=== PATIENT | female | born 1940 | race Caucasian/White ===

== ENCOUNTER → 2017-04-18 | Outpatient (CLI) | payer BC ==
[~2017-04-18] MED LIST: HYDC25 PO
== END | disposition home or self-care (01) ==
LOC: C.PATHSPEC 17:30
PROVIDERS: ATTEND Plastic Surgery
DX: L57.0 Actinic keratosis (principal); L57.8 Other skin changes due to chronic exposure to nonionizing radiation

== ENCOUNTER → 2017-04-23 | Outpatient (CLI) | payer BC ==
--- NOTE | 2017-04-23 10:53 | DIAGNOSTIC IMAGING REPORT ---
(CHEST) THORAX WITHOUT HISTORY:76 [id number] Pulmonary nodule follow-up study. COMPARISON: 07/19/[address] and 07/12/2015. TECHNIQUE: Multiple axial CT images of the chest were obtained without IV contrast. FINDINGS: No dominant thyroid nodule identified. Mildly prominent precarinal lymph node, 1.3 x 0.9 cm with central fatty hilum appears unchanged from comparison and is likely physiologic. Heart is normal in size without pericardial effusion. Prominent calcifications of the mitral annulus are noted. Three-vessel distribution of coronary arterial calcifications are present. A sending thoracic aorta is upper limits of normal at 4.0 x 3.9 cm. Extensive effort plaquing of the thoracic aorta is noted. The lungs are hyperinflated with upper lobe predominant centrilobular and paraseptal emphysema. 6 x 5 mm noncalcified pulmonary nodule of the lateral basal segment right lower lobe is redemonstrated. There is a subpleural reticulation in the lung bases are unchanged compatible with areas of fibrosis. Mucous secretions are seen within the airways. There are a few groundglass nodules in the right lower lobe measuring up to 4 mm as seen on image 32 of the axial series. There are some peripherally oriented tree-in-bud nodular opacities of the right upper lobe which appear to be unchanged. Upper abdominal structures are within normal limits. The soft tissues are within normal limits. The bones are mildly demineralized. Multilevel degenerative changes of the spine are noted. IMPRESSION: 1. 6 x 5 mm noncalcified solid pulmonary nodule of the lateral basal segment right lower lobe is stable dating back to 07/12/2015. Please refer to the guidelines below for follow-up recommendations. 2. A few scattered subsolid groundglass nodules of the right lower lobe are noted in conjunction with scattered areas of tree-in-bud nodularity of the right lower lobe suggesting infectious bronchiolitis. 3. Emphysema with mild bibasilar subpleural reticulation/fibrosis. Please refer to below summary of Fleischner criteria recommendations for follow-up of incidental CT nodules (Miguel Angel Lew, Guidelines for management of small pulmonary nodules detected on CT scans: A statement from the Fleischner Society, Radiology 237: [phone].) SOLID NODULES Solitary nodule size: <6 mm * Low risk patients: no follow-up needed * high risk patients: optional CT at 12 months Solitary nodule size: 6-8 mm * Low risk patients: follow-up at 6-12 months, then consider further follow-up at 18-24 months * high risk patients: initial follow-up CT at 6-12 months and then at 18-24 months if no change Solitary nodule size: >8 mm * either low or high risk patients - consider follow-up CT at 3 months, and/or CT-PET, and/or biopsy Multiple nodules size: <6 mm * Low risk patients: no routine follow-up * high risk patients: optional CT at 12 months Multiple nodules size: 6-8 mm * Low risk patients: follow-up at 3-6 months, then consider further follow-up at 18-24 months * high risk patients: follow-up at 3-6 months, then at 18-24 months if no change Multiple nodules size: >8 mm * Low risk patients: follow-up at 3-6 months, then consider further follow-up at 18-24 months * high risk patients: follow-up at 3-6 months, then at 18-24 months if no change Note: newly detected indeterminate nodule in persons 35 years of age or older. * Low risk patients: minimal or absent history of smoking and/or other known risk factors * high risk patients: history of smoking or of other known risk factors (e.g. first degree relative with lung cancer, or exposure to asbestos, radon, uranium) * if a nodule up to 8 mm is partly solid or is ground glass further follow-up is required after 24 months to exclude possible slow growing adenocarcinoma (ANDRA) SUBSOLID NODULES Solitary pure ground-glass nodule * nodule size <6 mm - no CT follow-up required * nodule size >=6 mm - follow-up CT at 6-12 months, then every 2 years until 5 years Solitary part-solid nodule * nodule size <6 mm - no CT follow-up required * nodule size >=6 mm - follow-up CT at 3-6 months. If unchanged, and solid component remains <6 mm, then annual follow-up for 5 years Multiple subsolid nodules * nodule size <6 mm - follow-up CT at 3-6 months, consider further follow-up at 2 and 4 years if stable * nodule size >=6 mm - follow-up CT at 3-6 months, subsequent management based on the most suspicious nodule(s) The above report was generated using voice recognition software. It may contain grammatical, syntax or spelling errors. Electronically signed by: Alvaro Luke 04/23/2017 10:52 AM Dictated Date/Time: 04/23/2017 10:44 AM
== END | disposition home or self-care (01) ==
LOC: C.CTS 09:41
PROVIDERS: ATTEND Internal Medicine Critical Care Medicine
DX: R91.8 Other nonspecific abnormal finding of lung field (principal); R91.1 Solitary pulmonary nodule

== ENCOUNTER 2017-08-22 21:51 | Emergency (ER) | payer BC ==
[~2017-08-22] VITALS: Ht 162.6 cm; Wt 49.4 kg
[2017-08-22 21:54] VITALS: TEMP 36.8; Ht 162.6 cm; Wt 49.4 kg
[2017-08-22] MEDS ORDERED: PROP80TA2 PO (22:56)
[2017-08-22] MEDS ORDERED: SYMBICORT INH (22:56)
[2017-08-22] MEDS ORDERED: LORA-741 PO (22:56)
[2017-08-22] MEDS ORDERED: LISI-461 PO (22:56)
[2017-08-22] MEDS ORDERED: ALEN70TA4 PO (22:56)
[2017-08-22] MEDS ORDERED: DONE1TAB11 PO (22:56)
[2017-08-22] MEDS ORDERED: CLOP1TAB15 PO (22:56)
[2017-08-22] MEDS ORDERED: LEVO88TA PO (22:56)
[2017-08-22] MEDS ORDERED: ATOR10TA82 PO (22:56)
[2017-08-22] MEDS ORDERED: TMPOPS15 OPB (22:58)
[2017-08-22] MEDS ORDERED: ASPI81TA28 PO (23:00)
--- NOTE | 2017-08-23 00:14 | EMERGENCY ROOM VISIT NOTE ---
History Report prepared by Maryjo: Alejandra Franco Under the Supervision of: Dr. Isabella Schulte D.O. First contact with patient: 22:15 Chief Complaint: FALL Stated Complaint: FELL, FACIAL BRUISING, BACK PAIN History of Present Illness The patient is a 76 year old female who presents to the Emergency Room with complaints of a fall at 1100 today. The patient was out in the driveway. It was raining and she slipped and fell. She fell forwards and was able to catch herself with her hands and knees. She hit her face in the fall. She denies any LOC. She remembers everything. She has been having intermittent sharp neck pain. She has had lower back pain recently which has worsened after the fall. The pain goes down her right leg which is normal for her. She vomited in the late afternoon today. She thinks it was because she was hungry. She is currently nauseous which she attributes to not having eating much today. She denies any vision changes, numbness, tingling, rib pain, abdominal pain, urinary symptoms, change in bowel movement, or SOB. She is on baby aspirin. Source of History: patient, family Onset: 1100 Position: other (global) Quality: other (fall) Timing: other (episodic) Associated Symptoms: + neck pain, + nausea, + vomiting, + back pain, No LOC , No abdominal pain, No urinary symptoms, No numbness Review of Systems See HPI for pertinent positives & negatives. A total of 10 systems reviewed and were otherwise negative. Family History No pertinent family history stated. Social History Smoking Status: Former Smoker Marital Status: Occupation Status: retired Current/Historical Medications Scheduled Alendronate Sodium (Fosamax), 35 MG PO WK Aspirin (Aspirin Ec), 81 MG PO DAILY Atorvastatin (Lipitor), 10 MG PO DAILY Clopidogrel (Plavix), 75 MG PO DAILY Donepezil Hydrochloride (Donepezil Hcl), 1 TAB PO DAILY Levothyroxine Sodium (Synthroid), 88 MCG PO DAILY Lisinopril (Zestril), 10 MG PO DAILY Propranolol (Inderal), 40 MG PO BID Timolol Maleate (Timolol 0.5% Oph Soln 15 Ml), 1 DROP OPB BID [Symbicort], 2 PUFFS INH QAM Scheduled PRN Lorazepam (Ativan), 0.5 MG PO DAILY PRN for Anxiety Allergies Coded Allergies: Sulfa Drugs (Verified Adverse Reaction, Mild, STOMACH UPSET, 05/06/13) Physical Exam Vital Signs Date Time Temp Pulse Resp B/P (MAP) Pulse Ox O2 Delivery O2 Flow Rate FiO2 08/23/17 00:45 85 16 138/74 96 08/22/17 21:54 36.8 89 16 145/71 96 Room Air Physical Exam GENERAL: alert, well appearing, well nourished, no distress, non-toxic HEAD: Contusion to the chin and left jaw, contusion along the left supraorbital region. EYE EXAM: normal conjunctiva, PERRL and EOM's grossly intact OROPHARYNX: no exudate, no erythema, lips, buccal mucosa, and tongue normal and mucous membranes are moist NECK: supple, no nuchal rigidity, no adenopathy, non-tender CHEST: No crepitus, no step off. LUNGS: Clear to auscultation. Normal chest wall mechanics HEART: no murmurs, S1 normal and S2 normal ABDOMEN: abdomen soft, non-tender, normo-active bowel sounds, no masses, no rebound or guarding. BACK: Back is symmetrical on inspection and there is no deformity, no CVA tenderness. Mild right low back pain reproducible on palpation. PELVIS: stable SKIN: no rashes and no bruising UPPER EXTREMITIES: upper extremities are grossly normal. LOWER EXTREMITIES: Superficial abrasions to the left knee. NEURO EXAM: Normal sensorium, cranial nerves II-XII grossly intact, normal speech, no gross weakness of arms, no gross weakness of legs. Medical Decision & Procedures ER Provider Diagnostic Interpretation: Xray results have been interpreted by me. Pelvis X-ray: No fracture or dislocation. Chest X-ray: No cardiomegaly, no effusions, no focal consolidation, no wide mediastinum, no pneumothorax, no rib fracture, no pulmonary edema. Radiology results have been interpreted by the [facility] radiologist and reviewed by me. CT Head: No intracranial hemorrhage or skull fracture. Involutional changes small vessel disease. Cataract surgery. Partly calcified scalp nodule. CT Facial: No acute fracture. Soft tissue swelling. Radiologist: Faviola Quinonez M.D. CT C-spine: No fracture or malalignment. CT L-spine: L1 is incompletely imaged. Otherwise no fracture identified. Degenerative changes. Levoscoliosis. Atherosclerotic changes. Stent grafts in the iliac arteries. Radiologist: Faviola Quinonez M.D. ECG Indication: other (fall) Rate (beats per minute): 62 Rhythm: sinus rhythm Findings: no acute ischemic change, no ectopy, other (normal axis, normal intervals) ED Course 2231: The patient was evaluated in room A10. A complete history and physical exam was performed. 0047: Patient updated on all results. Discussed symptoms to watch and return for, close follow-up with family doctor, use of regular medications, she and family verbalized understanding were agreeable with plan. I feel patient's isolated episode of vomiting unrelated to head injury today she has had a slight episodes in the past. They feel more likely related to food, being hungry, and/or the recent dental procedure she has undergone with subsequent pain. No new medications, doubt bacteremia/sepsis, EKG reassuring, patient with no other complaints of plain here. Neuro exam otherwise nonfocal and reassuring. Medical Decision Differential diagnoses include major intracranial, cervical, spinal, thoracic, abdominal, pelvic and neurologic injury. Fracture, contusion, sprain, strain, laceration, abrasions included as well. Patient well-appearing here despite contusions. Patient moving all extremities , and mentating normally. Imaging on the patient reassuring. Doubt a slight episode of vomiting related to head trauma or occult trauma to the abdomen and pelvis. EKG unremarkable. Doubt related to ACS. Doubt bacteremia/sepsis. Patient tolerated by mouth here, has had no recurrent vomiting. Discussed with patient and family symptoms to watch and return for, risk of additional occult traumatic injury, use of medications, hydration, and avoidance of any additional falls, they verbalized understanding were agreeable to plan. Head Trauma GCS Score: 15 Medication Reconcilliation Current Medication List: was personally reviewed by me Blood Pressure Screening Patient's blood pressure: Elevated blood pressure Blood pressure disposition: Elevated BP felt to be situational Impression Primary Impression: Fall Additional Impressions: Contusion of multiple sites Abrasion Scribe Attestation The scribe's documentation has been prepared under my direction and personally reviewed by me in its entirety. I confirm that the note above accurately reflects all work, treatment, procedures, and medical decision making performed by me. Departure Information Dispostion Home / Self-Care Referrals Abdelrahman Holder M.D. (PCP) Patient Instructions My [facility] Additional Instructions Please continue regular medications as prescribed. Please be cautious to avoid any additional or new falls or injuries. If you have any worsening headaches, vision changes, dizziness, have recurrent vomiting or develop abdominal pain, are unable to walk, develop numbness or tingling, have worsening back pain, notice a change in your urine or stools, or you have any other new concerns, please return the emergency room. Problem Qualifiers Primary Impression: Fall Encounter type: initial encounter Qualified Codes: W19.XXXA - Unspecified fall, initial encounter
[2017-08-23 00:45] VITALS: BP 138/74; PULSE 85; O2SAT 96
--- NOTE | 2017-08-23 06:27 | DIAGNOSTIC IMAGING REPORT ---
FACIAL BONES-MXILLOFAC WITHOUT CT DOSE: HISTORY: Trauma trauma, pain TECHNIQUE: Multiaxial CT images of the maxillofacial region were performed and reformatted in the coronal plane without the use of contrast. A dose lowering technique was utilized adhering to the principles of ALARA. COMPARISON: None. FINDINGS: The visualized cervical spine, skull base, pterygoid plates, nasal bones, lamina papyracea, orbital floors, mandible, and zygomatic arches are intact. No fractures. The orbits are unremarkable. IMPRESSION: No fractures within the maxillofacial region. The above report was generated using voice recognition software. It may contain grammatical, syntax or spelling errors. Electronically signed by: Chao Quiroz M.D. 08/23/2017 6:26 AM Dictated Date/Time: 08/23/2017 6:25 AM
--- NOTE | 2017-08-23 06:29 | DIAGNOSTIC IMAGING REPORT ---
LUMBAR SPINE WITHOUT CT DOSE: HISTORY: Trauma trauma, pain TECHNIQUE: Multiaxial CT images of the lumbar spine were performed and reformatted in the sagittal and coronal plane without the use of contrast. A dose lowering technique was utilized adhering to the principles of ALARA. COMPARISON: None. FINDINGS: No fractures. No subluxation. Paraspinal soft tissues are unremarkable. Considerable degenerative disc changes throughout. Degenerative change of vertebral endplates. Degenerative change posterior elements. IMPRESSION: Considerable degenerative change. No acute process. The above report was generated using voice recognition software. It may contain grammatical, syntax or spelling errors. Electronically signed by: Chao Quiroz M.D. 08/23/2017 6:28 AM Dictated Date/Time: 08/23/2017 6:27 AM
--- NOTE | 2017-08-23 06:34 | DIAGNOSTIC IMAGING REPORT ---
PELVIS 1 OR 2 VIEW ROUTINE CLINICAL HISTORY: trauma pain COMPARISON: None. DISCUSSION: The bones and joint spaces appear intact. There is no evidence of fracture, dislocation or bony disease. There is no evidence for soft tissue swelling. IMPRESSION: Negative study. The above report was generated using voice recognition software. It may contain grammatical, syntax or spelling errors. Electronically signed by: Chao Quiroz M.D. 08/23/2017 6:33 AM Dictated Date/Time: 08/23/2017 6:33 AM
--- NOTE | 2017-08-23 07:04 | DIAGNOSTIC IMAGING REPORT ---
CT SCAN OF THE BRAIN WITHOUT IV CONTRAST CLINICAL HISTORY: Trauma. COMPARISON STUDY: CT of the brain dated 01/13/2011. TECHNIQUE: Unenhanced axial CT scan of the brain is performed from the vertex to the skull base. FINDINGS: Brain parenchyma: There are age-related involutional changes noting moderate subcortical and periventricular microangiopathic change. There is no hemorrhage, mass effect, or evidence of acute territorial ischemia by CT criteria. Frankel-white matter is preserved. No extra-axial fluid collection is seen. Ventricles, sulci, cisterns: Prominent secondary to involutional change. Intracranial vasculature: There is atherosclerotic calcification of the cavernous carotid and vertebral arteries. Calvarium: The skeletal structures are osteopenic. There is no depressed calvarial fracture. Soft tissues: A calcified sebaceous cyst is noted in the left posterior parietal scalp. There is minimal left periorbital scalp contusion. Sinuses and mastoids: The visualized paranasal sinuses are clear. There is a right mastoid effusion. The left mastoid air cells are well pneumatized. Orbits: The bony orbits are grossly intact. IMPRESSION: There is no hemorrhage, mass effect, or evidence of acute territorial ischemia by CT criteria. Electronically signed by: Jalen Romeo M.D. 08/23/2017 7:03 AM Dictated Date/Time: 08/23/2017 7:01 AM
--- NOTE | 2017-08-23 07:10 | DIAGNOSTIC IMAGING REPORT ---
CT SCAN OF THE CERVICAL SPINE CLINICAL HISTORY: Trauma. COMPARISON STUDY: No priors. TECHNIQUE: CT scan of the cervical spine is performed from the skull base to the upper thoracic spine. Images are reviewed in the axial, sagittal, and coronal planes. IV contrast was not administered for this examination. A dose lowering technique was utilized adhering to the principles of ALARA. CT DOSE: 1484.75 mGy.cm FINDINGS: Skeletal structures: The skeletal structures are osteopenic. There is no evidence of fracture or subluxation involving the cervical spine. Vertebral body height and alignment are maintained. The odontoid process and lateral masses are intact. The atlantoaxial articulation is preserved noting productive degenerative change. The spinous processes appear intact. Anterior osteophytes are seen in the lower cervical region. There is moderate to advanced multilevel cervical spondylosis. Uncovertebral and facet arthropathy contribute to neural foraminal stenosis at most levels. Intervertebral discs: There is moderate to advanced disc space narrowing seen at C6-C7. Only mild disc space narrowing is seen throughout the remainder of the cervical spine. Central canal: Posterior disc osteophyte complexes at C3-C4 at C6-C7 likely contribute to mild acquired compromise of the central canal. Soft tissues: The prevertebral and paraspinous soft tissues are within normal limits. There is atherosclerotic calcification of the carotid bulbs. Calvarium: The visualized calvarium at the skull base appears intact. Brain parenchyma: Partially visualized brain parenchyma the skull base is within normal limits noting age-related involutional change. Sinuses and mastoids: The visualized paranasal sinuses are clear. There is a small right mastoid effusion. The left mastoid air cells are well pneumatized. Lung apices: Clear as visualized. IMPRESSION: 1. There is no evidence of fracture or subluxation involving the cervical spine. 2. Osteopenia and spondylotic change as above. Electronically signed by: Jalen Romeo M.D. 08/23/2017 7:09 AM Dictated Date/Time: 08/23/2017 7:06 AM
--- NOTE | 2017-08-23 07:16 | DIAGNOSTIC IMAGING REPORT ---
SINGLE VIEW CHEST CLINICAL HISTORY: Trauma. FINDINGS: An AP, portable, upright chest radiograph is compared to study dated 01/13/2011 and correlated with chest CT dated 04/23/2017. The examination is degraded by portable technique and apical lordotic positioning. The heart is top normal for projection and there is atherosclerotic calcification of the thoracic aorta. Emphysema and chronic interstitial thickening are similar to previous. There is bibasilar atelectasis. No airspace consolidation, large pleural effusion, or pneumothorax is seen. The skeletal structures are osteopenic. The bony thorax is grossly intact. Degenerative change and mild scoliosis are noted in the thoracic spine. IMPRESSION: Emphysematous change with no acute cardiopulmonary abnormality. Electronically signed by: Jalen Romeo M.D. 08/23/2017 7:15 AM Dictated Date/Time: 08/23/2017 7:14 AM
== END 2017-08-23 00:46 | disposition home or self-care (01) ==
LOC: C.EDB 21:52 → C.EDA 08-23 00:46
DX: S00.83XA Contusion of other part of head, initial encounter (principal); S00.12XA Contusion of left eyelid and periocular area, initial encounter; S80.212A Abrasion, left knee, initial encounter; W01.198A Fall on same level from slipping, tripping and stumbling with subsequent striking against other object, initial encounter; R40.2412 Glasgow coma scale score 13-15, at arrival to emergency department; R03.0 Elevated blood-pressure reading, without diagnosis of hypertension; Z79.82 Long term (current) use of aspirin; Z87.891 Personal history of nicotine dependence

== ENCOUNTER 2017-09-06 09:53 | Emergency (ER) | payer BC ==
[~2017-09-06] VITALS: Ht 162.6 cm; Wt 49.0 kg
[~2017-09-06 09:53] MED LIST changes: +ALEN70TA4 PO; +ASPI81TA28 PO; +ATOR10TA82 PO; +CLOP1TAB15 PO; +DONE1TAB11 PO; -HYDC25 PO; +LEVO88TA PO; +LISI-461 PO; +LORA-741 PO; +PROP80TA2 PO; +SYMBICORT INH; +TMPOPS15 OPB
[2017-09-06 10:00] VITALS: TEMP 36.8; Ht 162.6 cm; Wt 49.0 kg
[2017-09-06] MEDS ORDERED: ONDANSETRON INJ 2 MG/ML 2 ML VIAL IV STA (10:35)
[2017-09-06] MEDS ORDERED: GI COCKTAIL PO STA (10:35)
[2017-09-06] MEDS ORDERED: FAMOTIDINE 20 MG TAB PO ONE (10:45)
--- NOTE | 2017-09-06 10:46 | EMERGENCY ROOM VISIT NOTE ---
History Report prepared by Maryjo: Josue Mccord Under the Supervision of: Dr. Eduin Burroughs M.D. First contact with patient: 10:19 Chief Complaint: DIARRHEA Stated Complaint: DIARREHA History of Present Illness The patient is a 76 year old white female who presents to the ED with a cc of intermittent nausea. Has been sick for "a while". Positive diarrhea. Diarrhea has been intermittent for "a while" as well. Patient quit smoking a few days ago. Was previously smoking a half pack a day. Drinks well water, but notes that it is treated. Denies recent travel, antibiotic use, or known sick contacts. Had Thanksgiving dinner last night, but no one else has had similar symptoms. Negative urinary symptoms. EMR reviewed. Patient was seen in the ED two weeks ago for a fall. Had negative CT head, neck and face. Source of History: patient Onset: "a while" ago Quality: other (nausea) Timing: intermittent Associated Symptoms: + diarrhea, No urinary symptoms Review of Systems See HPI for pertinent positives and negatives. A total of ten systems were reviewed and were otherwise negative. Past Medical & Surgical Medical Problems: (1) No Known Active Medical Problems Family History No pertinent family history stated. Social History Smoking Status: Former Smoker Marital Status: Occupation Status: retired Current/Historical Medications Scheduled Alendronate Sodium (Alendronate Sodium), 35 MG PO WK Atorvastatin (Atorvastatin Calcium), 10 MG PO DAILY Clopidogrel (Plavix), 75 MG PO DAILY Donepezil HCl (Aricept), 5 MG PO DAILY Levothyroxine Sodium (Levothyroxine Sodium), 88 MCG PO DAILY Lisinopril (Zestril), 10 MG PO DAILY Propranolol Hcl (Propranolol Hcl), 40 MG PO BID Scheduled PRN Albuterol Hfa (Ventolin Hfa), 2 PUFFS INH Q4 PRN for SOB/Wheezing Ondansetron Hcl (Zofran), 4 MG PO TID PRN for Nausea Allergies Coded Allergies: Sulfa Drugs (Verified Adverse Reaction, Mild, STOMACH UPSET, 09/06/17) Physical Exam Vital Signs Date Time Temp Pulse Resp B/P (MAP) Pulse Ox O2 Delivery O2 Flow Rate FiO2 09/06/17 14:30 63 21 116/52 94 09/06/17 13:00 64 18 125/58 92 Room Air 09/06/17 12:30 61 22 103/48 95 Room Air 09/06/17 12:00 62 26 120/53 93 Room Air 09/06/17 11:11 63 28 136/50 94 Room Air 09/06/17 10:46 64 09/06/17 10:00 36.8 73 16 117/52 98 Room Air Physical Exam GENERAL: Awake, alert, well-appearing, NAD HENT: Normocephalic, ecchymosis to the chin and left periorbital area. No proptosis. EOMI. EYES: Normal conjunctiva. Sclera non-icteric. NECK: Supple. No nuchal rigidity. FROM. RESPIRATORY: Diffuse wheezing throughout all lung samson. CARDIAC: RRR, no MRG ABDOMEN: Soft, NTND, BS+ MSK: No chest wall TTP, no LE edema NEURO: GCS 15, CN 2-12 intact, moves all 4s on command SKIN: No rash or jaundice noted. Medical Decision & Procedures ER Provider Diagnostic Interpretation: X-ray: Per my interpretation, radiologist review. ABDOMEN 2VIEW W/PA CHEST RTN FINDINGS: Pulmonary vascular congestion of the chest. Slight blunting lateral costophrenic angles. This is slightly progressive compared to the prior study of 08/22/2017. Nonobstructive bowel pattern. Stents in position within the iliac arteries bilaterally. No evidence for an obstructive bowel pattern. Degenerative change of the spine as well as hips bilaterally. IMPRESSION: 1. Pulmonary vascular congestion the chest. 2. No acute process the abdomen. The above report was generated using voice recognition software. It may contain grammatical, syntax or spelling errors. Electronically signed by: Chao Quiroz M.D. 09/06/2017 11:44 AM Laboratory Results 09/06/17 10:45 Red Blood Count 4.54, Mean Corpuscular Volume 84.8, Mean Corpuscular Hemoglobin 29.1, Mean Corpuscular Hemoglobin Concent 34.3, Mean Platelet Volume 9.5, Neutrophils (%) (Auto) 63.5, Lymphocytes (%) (Auto) 12.6, Monocytes (%) (Auto) 6.7, Eosinophils (%) (Auto) 15.1, Basophils (%) (Auto) 1.1, Neutrophils # (Auto ) 3.99, Lymphocytes # (Auto) 0.79, Monocytes # (Auto) 0.42, Eosinophils # (Auto ) 0.95, Basophils # (Auto) 0.07 09/06/17 10:45 Test 09/06/17 10:45 White Blood Count 6.28 K/uL (4.8-10.8) Red Blood Count 4.54 M/uL (4.2-5.4) Hemoglobin 13.2 g/dL (12.0-16.0) Hematocrit 38.5 % (37-47) Mean Corpuscular Volume 84.8 fL (80-100) Mean Corpuscular Hemoglobin 29.1 pg (25-34) Mean Corpuscular Hemoglobin Concent 34.3 g/dl (32-36) Platelet Count 140 K/uL (130-400) Mean Platelet Volume 9.5 fL (7.4-10.4) Neutrophils (%) (Auto) 63.5 % Lymphocytes (%) (Auto) 12.6 % Monocytes (%) (Auto) 6.7 % Eosinophils (%) (Auto) 15.1 % Basophils (%) (Auto) 1.1 % Neutrophils # (Auto) 3.99 K/uL (1.4-6.5) Lymphocytes # (Auto) 0.79 K/uL (1.2-3.4) Monocytes # (Auto) 0.42 K/uL (0.11-0.59) Eosinophils # (Auto) 0.95 K/uL (0-0.5) Basophils # (Auto) 0.07 K/uL (0-0.2) RDW Standard Deviation 42.2 fL (36.4-46.3) RDW Coefficient of Variation 13.8 % (11.5-14.5) Immature Granulocyte % (Auto) 1.0 % Immature Granulocyte # (Auto) 0.06 K/uL (0.00-0.02) Red Blood Cell Morphology Unremarkable Anion Gap 6.0 mmol/L (3-11) Est Creatinine Clear Calc Drug Dose 37.0 ml/min Estimated GFR () 63.4 Estimated GFR (Non- 54.7 BUN/Creatinine Ratio 12.1 (10-20) Calcium Level 8.0 mg/dl (8.5-10.1) Total Bilirubin 0.6 mg/dl (0.2-1) Direct Bilirubin 0.2 mg/dl (0-0.2) Aspartate Amino Transf (AST/SGOT) 17 U/L (15-37) Alanine Aminotransferase (ALT/SGPT) 13 U/L (12-78) Alkaline Phosphatase 267 U/L (45-117) Troponin I < 0.015 ng/ml (0-0.045) Total Protein 7.0 gm/dl (6.4-8.2) Albumin 2.6 gm/dl (3.4-5.0) Lipase 95 U/L (73-393) Laboratory results reviewed by me Medications Administered Medications (Trade) Dose Ordered Sig/Kayy Route Start Time Stop Time Status Last Admin Dose Admin Ondansetron HCl (Zofran Inj) 4 mg NOW STAT IV 09/06/17 10:35 09/06/17 10:37 DC 09/06/17 11:01 4 MG Famotidine (Pepcid Tab) 20 mg NOW ONCE PO 09/06/17 10:45 09/06/17 10:46 DC 09/06/17 11:00 20 MG Al Hydroxide/Mg Hydroxide (Maalox Susp) 30 ml STK-MED ONCE .ROUTE 09/06/17 10:55 09/06/17 10:56 DC 09/06/17 11:02 30 ML Lidocaine HCl (Viscous Lidocaine 2% Soln) 20 ml STK-MED ONCE .ROUTE 09/06/17 10:56 09/06/17 10:57 DC 09/06/17 11:03 20 ML ECG Indication: nausea Rate (beats per minute): 63 Rhythm: normal sinus Findings: no ectopy, other (Normal intervals. Normal axis. No STS changes or TWI. ) ED Course 1022: The patient was evaluated in room A12B. A complete history and physical exam was performed. 1335: I reevaluated the patient. Discussed results and discharge instructions: she verbalized understanding and agreement. The patient is ready for discharge. Medical Decision The patient is a 76 year old white female who presents to the ED with a cc of intermittent nausea. Differential diagnosis includes etiologies such as appendicitis, diverticulitis, PUD, biliary pathology, UTI, pancreatitis, obstruction, mesenteric ischemia, aortic pathology, infections, inflammatory bowel disease, renal colic, as well as others were entertained. Patient was seen and evaluated the bedside. Patient did complain of some mild nausea beginning this morning. Patient has felt the urge to vomit but has not had any episodes of emesis. Patient has had some looser stools. Patient did have thanks giving dinner last evening and now BL Rodger sick. Patient denies any stream water, sick contacts, or antibiotic use. Patient and do have a well but it is treated. Patient on exam is very well-appearing. Patient did last use tobacco several days ago but has been a chronic smoker for many years for half pack a day. Patient does have wheezing on exam was not tachypnea nor hypoxic nor labored. Patient's abdomen is very soft. Patient did have blood work, EKG, troponin, and plain films completed along with symptomatic treatment. Patient was feeling improved. Patient had a nonischemic EKG. Patient troponin negative. Patient was feeling much improved. I do not believe that the patient is having atypical chest pain. Also do not believe the patient has a surgical abdomen. Patient does not require any more advanced imaging this time. Alk phos mildly elevated but WBC WNL and t bilis and LFTs WNL do not believe GB type pain. Patient was able tolerate by mouth was told to follow-up with her PCP or return given some warning signs. Patient was given strict follow -up, discharge, and return precautions. All questions were answered. Patient was deemed suitable for outpatient follow-up at this time. Patient agreed with the plan of care and was safely discharged home. Medication Reconcilliation Current Medication List: was personally reviewed by me Blood Pressure Screening Patient's blood pressure: Normal blood pressure Blood pressure disposition: Did not require urgent referral Impression Primary Impression: Nausea Additional Impressions: Gastroenteritis Encounter for smoking cessation counseling Scribe Attestation The scribe's documentation has been prepared under my direction and personally reviewed by me in its entirety. I confirm that the note above accurately reflects all work, treatment, procedures, and medical decision making performed by me. Departure Information Dispostion Home / Self-Care Referrals Abdelrahman Holder M.D. (PCP) Patient Instructions ED Diet Shirley, ED Nausea Vomiting, ED Smoking Cessation, [facility] , Nausea Vomit Control Additional Instructions Please return to the emergency department if you have worsening or recurrent symptoms not amenable to at-home treatment. Please call for a follow-up appointment with her primary care physician. Please take your medications as prescribed. If you have other concerns and/or complaints please feel free to also call your primary care physician's office or return the ED for further evaluation, management, and treatment. Take your medications as prescribed. You have been examined and treated today on an emergency basis only. This is not a substitute for, or an effort to provide, complete comprehensive medical care. It is impossible to recognize and treat all injuries or illnesses in a single emergency department visit. It is therefore important that you follow up closely with [facility], your PCP, and/or your specialist(s). Call as soon as possible for an appointment. Thank you for your time and consideration. I look forward to speaking with you again soon. Please don't hesitate to call us if you have any questions. Problem Qualifiers
[2017-09-06] MEDS ORDERED: ALUMINUM/MAGNESIUM SUSP 30 ML UDC ONE (10:55)
[2017-09-06] MEDS ORDERED: LIDOCAINE HCL 2% VISC SOLN 20 ML UDC ONE (10:56)
[2017-09-06 11:31] LABS: ALT/SGPT 13 U/L (12-78); AST/SGOT 17 U/L (15-37); BLOOD UREA NITROGEN 12 mg/dl (7-18); BUN/CREATININE RATIO 12.1 (10-20); CARBON DIOXIDE 25 mmol/L (21-32); CHLORIDE 102 mmol/L (98-107); GLUCOSE 83 mg/dl (70-99); POTASSIUM 4.2 mmol/L (3.5-5.1); SODIUM 133 mmol/L (136-145)
[2017-09-06 11:37] LABS: ALKALINE PHOSPHATASE 267 U/L (45-117)
[2017-09-06 11:41] LABS: HEMATOCRIT 38.5 % (37-47); MEAN CELL VOLUME 84.8 fL (80-100); MEAN CORPUSCULAR HEMOGLOBIN 29.1 pg (25-34); MEAN CORPUSCULAR HGB CONC 34.3 g/dl (32-36); MEAN PLATELET VOLUME 9.5 fL (7.4-10.4); PLATELET COUNT 140 K/uL (130-400); RED BLOOD COUNT 4.54 M/uL (4.2-5.4); WHITE BLOOD COUNT 6.28 K/uL (4.8-10.8)
--- NOTE | 2017-09-06 11:45 | DIAGNOSTIC IMAGING REPORT ---
ABDOMEN 2VIEW W/PA CHEST RTN CLINICAL HISTORY: ABDOMINAL PAIN/GI pain COMPARISON STUDY: 08/22/2017 FINDINGS: Pulmonary vascular congestion of the chest. Slight blunting lateral costophrenic angles. This is slightly progressive compared to the prior study of 08/22/2017. Nonobstructive bowel pattern. Stents in position within the iliac arteries bilaterally. No evidence for an obstructive bowel pattern. Degenerative change of the spine as well as hips bilaterally. IMPRESSION: 1. Pulmonary vascular congestion the chest. 2. No acute process the abdomen. The above report was generated using voice recognition software. It may contain grammatical, syntax or spelling errors. Electronically signed by: Chao Quiroz M.D. 09/06/2017 11:44 AM Dictated Date/Time: 09/06/2017 11:43 AM
[2017-09-06] MEDS ORDERED: PROP40TA5 PO (11:55)
[2017-09-06] MEDS ORDERED: ONDA4TAB46 PO (11:55)
[2017-09-06] MEDS ORDERED: CLOP1TAB15 PO (11:55)
[2017-09-06] MEDS ORDERED: VNTHFA/IN INH (11:55)
[2017-09-06] MEDS ORDERED: DONE5TAB9 PO (11:55)
[2017-09-06] MEDS ORDERED: ALEN1TAB21 PO (11:55)
[2017-09-06] MEDS ORDERED: LPT10 PO (11:55)
[2017-09-06] MEDS ORDERED: LEVO88TA3 PO (11:55)
[2017-09-06] MEDS ORDERED: LISI-461 PO (11:55)
[2017-09-06 12:07] LABS: BASO % 1.1 %; BASO ABS # 0.07 K/uL (0-0.2); COMPLETE YES; EOS % 15.1 %; LYMPH % 12.6 %; LYMPH ABS # 0.79 K/uL (1.2-3.4); MONO % 6.7 %; NEUT % 63.5 %
[2017-09-06 14:30] VITALS: BP 116/52; PULSE 63; O2SAT 94
== END 2017-09-06 14:30 | disposition home or self-care (01) ==
LOC: C.EDB 09:55 → C.EDA 14:30
DX: R11.0 Nausea (principal); K52.9 Noninfective gastroenteritis and colitis, unspecified; Z71.6 Tobacco abuse counseling; Z79.02 Long term (current) use of antithrombotics/antiplatelets; Z79.899 Other long term (current) drug therapy

== ENCOUNTER 2021-09-05 14:34 | Inpatient (IN) ==
[2021-09-05 17:41] LABS: Basophils # (auto) 0.02 K/uL (0-0.2); Basophils % (auto) 0.2 %; Eosinophils # (auto) 0.11 K/uL (0-0.5); Eosinophils % (auto) 0.9 %; Hematocrit (blood only) 35.6 % (37-47); Hemoglobin 11.8 g/dL (12.0-16.0); Immature Granulocytes # (auto) 0.02 K/uL (0.00-0.02); Immature Granulocytes % (auto) 0.2 %; Lymphocytes # (auto) 3.04 K/uL (1.2-3.4); Lymphocytes % (auto) 25.4 %; Mean Corpuscular Hemoglobin 27.6 pg (25-34); Mean Corpuscular Hgb Conc 33.1 g/dL (32-36); Mean Corpuscular Volume 83.4 fL (80-100); Mean Platelet Volume 8.7 fL (7.4-10.4); Monocytes # (auto) 1.13 K/uL (0.11-0.59); Monocytes % (auto) 9.4 %; Neutrophils # (auto) 7.66 K/uL (1.4-6.5); Neutrophils % (auto) 63.9 %; Platelet Count 225 K/uL (130-400); RDW Coefficient of Variation 15.1 % (11.5-14.5); RDW Standard Deviation 46.3 fL (36.4-46.3); Red Blood Count 4.27 M/uL (4.2-5.4); White Blood Count 11.98 K/uL (4.8-10.8)
[2021-09-05 18:10] LABS: Albumin Level 2.9 gm/dl (3.4-5.0); BUN Creatinine Ratio 17.5 (10-20); Calcium 9.2 mg/dl (8.5-10.1); Creatinine Clr Calc Pharmacy 24.6 ml/min; Est GFR (African American) 49.9 ml/min; Est GFR (Non-African American) 43.1 ml/min; Potassium 4.7 mmol/L (3.5-5.1)
[2021-09-05 18:16] LABS: Albumin Globulin Ratio 0.6 (0.9-2); Bilirubin,Total 0.6 mg/dl (0.2-1); Globulin 4.9 gm/dl (2.5-4.0); Thyroid Stimulating Hormone 6.3 uIu/ml (0.300-4.500); Total Protein 7.8 gm/dl (6.4-8.2); Troponin I 0.307 ng/ml (0-0.045)
[2021-09-05 18:21] LABS: Magnesium 2.3 mg/dl (1.8-2.4)
[2021-09-05 18:32] LABS: T4 Free Thyroxine 1.21 ng/dl (0.8-1.6)
[2021-09-05] MEDS ORDERED: SODIUM CHLORIDE 0.9% 1000ML 1,000 ML IV ONE ×2 (18:34→20:17)
--- NOTE | 2021-09-05 18:38 | Emergency Department Note ---
History of Present Illness General Chief complaint: Fall Stated complaint: FELL OFF THE COUCH/LETHARGIC Time Seen by Provider: 09/05/21 18:22 History of Present Illness 80-year-old female presents to the ED with a chief complaint of some generalized weakness and a fall off of a couch overnight. The patient has 2 caregivers at home through the day but not overnight. The caregiver presents tonight with the patient. She fell asleep on the couch last evening possibly around 8 or 9 PM. She at some point fell off the couch onto the floor. She was found on the floor this morning around 7:45 AM. She does have a history of dementia. She has had decreased p.o. intake for the past 36 hours or so according to the caregiver. She has not been taking her meds well. The patient seems to be generally weak. Is slurring her words slightly. No additional complaints. The patient has no specific complaints. Denies any headaches, chest pains, shortness of breath or injury. Home Medications Medication Instructions Recorded Confirmed Type atorvastatin 10 mg tablet 10 mg PO HS 06/14/18 09/05/21 History clopidogrel 75 mg tablet 75 mg PO DAILY 06/14/18 09/05/21 History levothyroxine 75 mcg tablet 75 mcg PO DAILYBB 06/14/18 09/05/21 History lisinopril 5 mg tablet 5 mg PO DAILY 06/14/18 09/05/21 History albuterol sulfate 90 mcg/actuation 2 puff INHALATION Q4H PRN #8 gm 05/25/19 09/05/21 Rx aerosol inhaler (Ventolin HFA) travoprost 0.004 % eye drops 1 drp OPB HS ml 05/25/19 09/05/21 History budesonide-formoterol HFA 80 2 puff INH BID #10.2 gm 12/05/20 09/05/21 Rx mcg-4.5 mcg/actuation aerosol inhaler (Symbicort) roflumilast 500 mcg tablet 500 mcg PO DAILY #30 tab 04/11/21 09/05/21 Rx fluticasone propionate 50 2 spray INTRANASAL DAILY 09/05/21 09/05/21 History mcg/actuation nasal spray,suspension ipratropium 0.5 mg-albuterol 3 mg 3 ml INHALATION QID PRN 09/05/21 09/05/21 History (2.5 mg base)/3 mL nebulization soln mirtazapine 30 mg tablet 30 mg PO HS 09/05/21 09/05/21 History ondansetron HCl 4 mg tablet 4 mg PO Q8H PRN 09/05/21 09/05/21 History (Zofran) propranolol 60 mg capsule,24 60 mg PO DAILY 09/05/21 09/05/21 History hr,extended release risperidone 0.25 mg tablet 0.25 mg PO HS 09/05/21 09/05/21 History Allergies Allergy/AdvReac Type Severity Reaction Status Date / Time nitrofurantoin Allergy Unknown ON GMG MED Verified 09/05/21 19:41 LIST Sulfa (Sulfonamide AdvReac Intermediate STOMACH Verified 09/05/21 19:41 Antibiotics) UPSET Past Med/Surg History Medical History Fracture of triquetrum of right wrist Full code status Gastroenteritis History of arthritis History of seborrheic keratosis Right patella fracture Right shoulder injury 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) "Development of a skin lesion of the left upper arm Status post biopsy April 25, 2018 Moderately differentiated squamous cell carcinoma, completely excised Perineural invasion" Social History Smoking Status: Former smoker Hx Alcohol Use: No Hx Substance Use: No Communication Ability: Effective marital status: How many Children do You have: 2 Feels Safe at Home: Yes Assistive Devices: Brace/Splint/Immobilizer and Glasses Review of Systems A total of 10 systems reviewed and were otherwise negative Physical Exam Vital Signs Vital Signs - 24 hr 09/05/21 14:56 09/05/21 18:48 09/05/21 18:49 Temperature 37.1 C Temperature Source Temporal Artery Scan Pulse Rate 75 64 Pulse Rate [Radial] 60 Pulse Rhythm Regular Pulse Strength Normal Respiratory Rate 20 18 20 Respiratory Effort / Characteristics Non-Labored Spontaneous Non-Labored Respiratory Depth Normal Normal Respiratory Pattern Regular Blood Pressure 117/79 Blood Pressure [Left Arm] 128/56 L Blood Pressure Mean 91 Blood Pressure Mean [Left Arm] 80 Blood Pressure Position Sitting Blood Pressure Position [Left Arm] Lying Pulse Oximetry 93 96 95 Oxygen Delivery Method Room Air Room Air Room Air Sepsis Recent Fever Within 48 Hours No Sepsis New/Unexplained Change in Mental Status N/A Sepsis Action Taken by Nursing No Action Required CONSTITUTIONAL/VITAL SIGNS: Reviewed / noted above. GENERAL: Non-toxic in appearance. No obvious trauma. INTEGUMENTARY: Warm, dry, and [place]. HEAD: Normocephalic. No obvious trauma. EYES: without scleral icterus or trauma. ENT/OROPHARYNX: clear and slightly dry. LYMPHADENOPATHY/NECK: Is supple without lymphadenopathy or meningismus. No midline tenderness. RESPIRATORY: Clear to auscultation bilaterally. No increased work of breathing. CARDIOVASCULAR: Regular rate and rhythm. GI/ABDOMEN: Soft and nontender. No organomegaly or pulsatile mass. EXTREMITIES: Warm and well perfused. BACK: No CVA tenderness. No midline tenderness. NEUROLOGICAL: Intact without focal deficits. PSYCHIATRIC: normal affect. MUSCULOSKELETAL: Normally developed with good muscle tone. Moves all extremities without discomfort. No obvious injury. TRIAGE NURSING DOCUMENTATION REVIEWED. Course Administered Medications Discontinued Medications Sodium Chloride (Nss 1000ml) 1,000 mls @ 999 mls/hr IV .Q1H1M ONE Stop: 09/05/21 19:34 Last Admin: 09/05/21 19:04 Dose: 999 mls/hr Documented by: [id number] Medical Decision Making Differential Diagnosis Differential includes acute coronary syndrome, myocardial infarction, CVA, TIA, anemia, infection, pneumonia, UTI, pyelonephritis, poor nutrition, dehydration, electrolyte disturbance,hypoglycemia. Medical Records Attestation: I reviewed the patient's medical records. Home Medications Current Medication List: was personally reviewed by me Laboratory Data Attestation: I reviewed the patient's lab results. Result diagrams: 09/05/21 17:22 09/05/21 17:22 Lab Results 09/05/21 09/05/21 09/05/21 Range/Units 17:22 17:22 17:22 WBC 11.98 H (4.8-10.8) K/uL RBC 4.27 (4.2-5.4) M/uL Hgb 11.8 L (12.0-16.0) g/dL Hct 35.6 L (37-47) % MCV 83.4 (80-100) fL MCH 27.6 (25-34) pg MCHC 33.1 (32-36) g/dL RDW Std Deviation 46.3 (36.4-46.3) fL RDW Coeff of Sindhu 15.1 H (11.5-14.5) % Plt Count 225 (130-400) K/uL MPV 8.7 (7.4-10.4) fL Immature Gran % (Auto) 0.2 % Neut % (Auto) 63.9 % Lymph % (Auto) 25.4 % [place] % (Auto) 9.4 % Eos % (Auto) 0.9 % Baso % (Auto) 0.2 % Neut # (Auto) 7.66 H (1.4-6.5) K/uL Lymph # (Auto) 3.04 (1.2-3.4) K/uL [place] # (Auto) 1.13 H (0.11-0.59) K/uL Eos # (Auto) 0.11 (0-0.5) K/uL Baso # (Auto) 0.02 (0-0.2) K/uL Immature Gran # (Auto) 0.02 (0.00-0.02) K/uL Sodium 136 (136-145) mmol/L Potassium 4.7 (3.5-5.1) mmol/L Chloride 106 (98-107) mmol/L Carbon Dioxide 21 (21-32) mmol/L Anion Gap 9.0 (3-11) BUN 21 H (7-18) mg/dl Creatinine 1.19 (0.6-1.2) mg/dl Est Cr Clr Drug Dosing 24.6 ml/min Est GFR ( Amer) 49.9 ml/min Est GFR (Non-Af Amer) 43.1 ml/min BUN/Creatinine Ratio 17.5 (10-20) Glucose 98 (70-99) mg/dl Calcium 9.2 (8.5-10.1) mg/dl Magnesium 2.3 (1.8-2.4) mg/dl Total Bilirubin 0.6 (0.2-1) mg/dl AST 40 H (15-37) U/L ALT 18 (12-78) U/L Alkaline Phosphatase 112 (45-117) U/L Ammonia < 10.0 L (11-32) umol/L Total Creatine Kinase 1065 H (26-192) U/L Troponin I 0.307 H* (0-0.045) ng/ml Total Protein 7.8 (6.4-8.2) gm/dl Albumin 2.9 L (3.4-5.0) gm/dl Globulin 4.9 H (2.5-4.0) gm/dl Albumin/Globulin Ratio 0.6 L (0.9-2) TSH 6.300 H (0.300-4.500) uIu/ml Free T4 1.21 (0.8-1.6) ng/dl Imaging Data Radiologist's Impression: Chest X-Ray 09/05/21 16:33 XR chest 1V portable HISTORY: 80 years-old Female weakness acute weakness COMPARISON: Chest CT 12/14/2020, chest radiograph 06/13/2018 TECHNIQUE: Portable AP view of the chest FINDINGS: Cardiac silhouette is enlarged. Small pleural effusions with mild bibasilar consolidation. Emphysema. Pulmonary vascular congestion with mild interstitial coarsening. Calcified plaque of the thoracic aorta. No pneumothorax. Degenerative changes of the spine and left shoulder. Reverse right shoulder total joint arthroplasty. IMPRESSION: 1. Cardiomegaly with nonspecific interstitial coarsening. 2. Small pleural effusions with bibasilar consolidative opacities suggestive of atelectasis versus pneumonitis. 3. Emphysema. ACT 112: Negative or not required by law. The above report was generated using voice recognition software. It may contain grammatical, syntax or spelling errors. Electronically signed by: Art Luke M.D. 09/05/2021 7:[address] 09/05/21 18:26 CT head/brain wo con CLINICAL HISTORY: 80 years-old Female with fall. Acute head injury status post fall TECHNIQUE: Multiple axial CT images of the head were obtained without contrast. A dose lowering technique was utilized adhering to the principles of ALARA. CT DOSE: 844.62 mGy.cm COMPARISON: Head CT 08/22/2017 FINDINGS: Mildly motion degraded exam. No acute intracranial hemorrhage, midline shift, intracranial mass, hydrocephalus, territorial ischemia or abnormal extra-axial collection. Age-related involutional changes. White matter hypodensities suggest chronic microvascular ischemic disease. Cerebral vascular calcifications. The calvarium is intact. Prior bilateral lens repair. There is a 1.2 cm calcification of the left parietal scalp. There is severe complete opacification with dense secretions of the maxillary sinuses. Hypoplastic frontal sinuses with complete opacification involving numerous bilateral ethmoid air cells, right greater than left. Moderate size right mastoid effusion. IMPRESSION: 1. No acute intracranial abnormality or calvarial fracture. 2. Severe paranasal sinus disease, new from the 2017 comparison. ACT 112: Negative or not required by law. The above report was generated using voice recognition software. It may contain grammatical, syntax or spelling errors. Electronically signed by: Art Luke M.D. 09/05/2021 7:48 PM ECG Data Attestation: I personally reviewed and interpreted this ECG as follows: Additional Comments: Twelve-lead EKG: Per my interpretation there is a normal sinus rhythm at a rate of 62. T wave inversions laterally. These are new compared to June 13, 2018. No PVCs. No ST elevation. MDM Narrative Patient presents to the ED this evening after being found on the floor early this morning. Decreased p.o. intake. Generalized weakness. Has caregivers during the day but not the night. Patient denies any specific complaints. Vital signs are normal. Exam was unremarkable with exception of dry mucous me mbranes. The white blood cell count is 11. 9. BUN is 21. Troponin was 0.307. Total CK is 1065.Twelve-lead EKG shows a normal sinus rhythm at a rate of 62. No ST elevation. There are T wave inversions laterally. EKG compared to May 2018 reveals new T wave changes laterally. Chest x-ray reveals a left pleural effusion. Clinically no evidence of pneumonia. CT scan of the brain did not s how acute process. The patient was treated with IV fluids here. She is not experiencing any chest pain. She will be seen by the hospitalist for further evaluation and care. Impression & Plan Rhabdomyolysis, Elevated troponin Discharge Plan Visit Data Chief Complaint: Fall Stated Complaint: FELL OFF THE COUCH/LETHARGIC ED Provider: Mike Bates Discharge Problem: Rhabdomyolysis, Elevated troponin Patient Disposition: Being Evaluated by Hospitalist Forms Stand Alone Forms: My [facility] Emergency Department, Important Visit Information Prescriptions Prescriptions: No Action Symbicort 80-4.5 mcg/actuation HFA aerosol inhaler 2 puff INH BID Qty: 10.2 RF: 5 roflumilast 500 mcg tablet 500 mcg PO DAILY Qty: 30 RF: 5 Travatan Z 0.004 % drops 1 drp OPB HS RF: 0 albuterol sulfate [Ventolin HFA] 90 mcg/actuation HFA aerosol inhaler 2 puff INHALATION Q4H PRN (Reason: Shortness Of Breath Or Wheezing) Qty: 8 RF: 0 atorvastatin 10 mg Tablet 10 mg PO HS RF: 0 clopidogrel 75 mg Tablet 75 mg PO DAILY RF: 0 levothyroxine 75 mcg Tablet 75 mcg PO DAILYBB RF: 0 lisinopril 5 mg Tablet 5 mg PO DAILY RF: 0 ondansetron HCl [Zofran] 4 mg Tablet 4 mg PO Q8H PRN (Reason: NAUSEA/VOMITING) RF: 0 propranolol 60 mg capsule,extended release 24 hr 60 mg PO DAILY RF: 0 risperidone 0.25 mg tablet 0.25 mg PO HS RF: 0 mirtazapine 30 mg tablet 30 mg PO HS RF: 0 fluticasone propionate 50 mcg/actuation spray,suspension 2 spray INTRANASAL DAILY RF: 0 ipratropium-albuterol 0.5 mg-3 mg(2.5 mg base)/3 mL solution for nebulization 3 ml inhalation QID PRN (Reason: Shortness Of Breath) RF: 0 Referrals Referrals: Christiano Ramírez DO [Primary Care Provider] -
--- NOTE | 2021-09-05 19:14 | XRay Report ---
XR chest 1V portable HISTORY: 80 years-old Female weakness acute weakness COMPARISON: Chest CT 12/14/2020, chest radiograph 06/13/2018 TECHNIQUE: Portable AP view of the chest FINDINGS: Cardiac silhouette is enlarged. Small pleural effusions with mild bibasilar consolidation. Emphysema. Pulmonary vascular congestion with mild interstitial coarsening. Calcified plaque of the thoracic ao rta. No pneumothorax. Degenerative changes of the spine and left shoulder. Reverse right shoulder tot al joint arthroplasty. IMPRESSION: 1. Cardiomegaly with nonspecific interstitial coarsening. 2. Small pleural effusions with bibasilar consolidative opacities suggestive of atelectasis versus pn eumonitis. 3. Emphysema. ACT 112: Negative or not required by law. The above report was generated using voice recognition software. It may contain grammatical, syntax o r spelling errors. Electronically signed by: Art Luke M.D. 09/05/2021 7:13 PM
--- NOTE | 2021-09-05 19:49 | CT Scan Report ---
CT head/brain wo con CLINICAL HISTORY: 80 years-old Female with fall. Acute head injury status post fall TECHNIQUE: Multiple axial CT images of the head were obtained without contrast. A dose lowering tech nique was utilized adhering to the principles of ALARA. CT DOSE: 844.62 mGy.cm COMPARISON: Head CT 08/22/2017 FINDINGS: Mildly motion degraded exam. No acute intracranial hemorrhage, midline shift, intracranial mass, hydr ocephalus, territorial ischemia or abnormal extra-axial collection. Age-related involutional changes. White matter hypodensities suggest chronic microvascular ischemic disease. Cerebral vascular calcifi cations. The calvarium is intact. Prior bilateral lens repair. There is a 1.2 cm calcification of the left par ietal scalp. There is severe complete opacification with dense secretions of the maxillary sinuses. H ypoplastic frontal sinuses with complete opacification involving numerous bilateral ethmoid air cells , right greater than left. Moderate size right mastoid effusion. IMPRESSION: 1. No acute intracranial abnormality or calvarial fracture. 2. Severe paranasal sinus disease, new from the 2017 comparison. ACT 112: Negative or not required by law. The above report was generated using voice recognition software. It may contain grammatical, syntax o r spelling errors. Electronically signed by: Art Luke M.D. 09/05/2021 7:48 PM
--- NOTE | 2021-09-05 20:09 | History & Physical Report ---
Date of Service September 05, 2021 Assessment & Plan (1) Rhabdomyolysis: Plan: Abnormal LFTs, troponin elevation secondary to above Hypertension, BP on the lower side hx PAD as per records COPD, pulmonary status at baseline SCCA LUE sp surgery ongoing radiation tx Hypothyroidism, TSH slight elevated Dementia past tobacco abuse Medical telemetry given troponin elevation Follow CPK response to IVF Follow troponin, TTE if with progression PT OT eval Social service RE discharge planning Full code for now Attempted to contact patient's son, Mr. Ross Orozco (contact #[phone]), over the phone to discuss plan of care and patient CODE STATUS. No answer. W ill request AM provider to reattempt contact in a.m. Text document was generated using [employer] voice recognition software. It may contain grammatical or spelling errors. Kindly contact undersigned for clarification of any documentation item in question. History of Present Illness Chief Complaint: Fall/lethargy as per records, patient fell off the couch I do not know as per patient Primary Care Provider: Christiano Ramírez, History obtained from patient, caregiver , and records. Limited history from patient secondary to dementia. Medical history significant for hypertension, PAD status post surgery, COPD, past tobacco abuse, SCCA LUE sp surgery ongoing radiation tx, dementia Last confinement 2017 for right shoulder injury. 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 Patient possibly fell off the couch when she fell asleep. Patient unable to get patient up from the floor right away. had to get help hours later from caregivers who are not at patient's home 24 hours. Patient weak and little sleepy. Patient denies chest pain, S OB, abdominal pain. Patient brought to the ER for evaluation. She does not know why she is in the hospital. 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, lives with Allergies Allergy/AdvReac Type Severity Reaction Status Date / Time nitrofurantoin Allergy Unknown ON [facility]G MED Verified 09/05/21 19:41 LIST Sulfa (Sulfonamide AdvReac Intermediate STOMACH Verified 09/05/21 19:41 Antibiotics) UPSET Home Medications Medication Instructions Recorded Confirmed Type atorvastatin 10 mg tablet 10 mg PO HS 06/14/18 09/05/21 History clopidogrel 75 mg tablet 75 mg PO DAILY 06/14/18 09/05/21 History levothyroxine 75 mcg tablet 75 mcg PO DAILYBB 06/14/18 09/05/21 History lisinopril 5 mg tablet 5 mg PO DAILY 06/14/18 09/05/21 History albuterol sulfate 90 mcg/actuation 2 puff INHALATION Q4H PRN #8 gm 05/25/19 09/05/21 Rx aerosol inhaler (Ventolin HFA) travoprost 0.004 % eye drops 1 drp OPB HS ml 05/25/19 09/05/21 History budesonide-formoterol HFA 80 2 puff INH BID #10.2 gm 12/05/20 09/05/21 Rx mcg-4.5 mcg/actuation aerosol inhaler (Symbicort) roflumilast 500 mcg tablet 500 mcg PO DAILY #30 tab 04/11/21 09/05/21 Rx fluticasone propionate 50 2 spray INTRANASAL DAILY 09/05/21 09/05/21 History mcg/actuation nasal spray,suspension ipratropium 0.5 mg-albuterol 3 mg 3 ml INHALATION QID PRN 09/05/21 09/05/21 History (2.5 mg base)/3 mL nebulization soln mirtazapine 30 mg tablet 30 mg PO HS 09/05/21 09/05/21 History ondansetron HCl 4 mg tablet 4 mg PO Q8H PRN 09/05/21 09/05/21 History (Zofran) propranolol 60 mg capsule,24 60 mg PO DAILY 09/05/21 09/05/21 History hr,extended release risperidone 0.25 mg tablet 0.25 mg PO HS 09/05/21 09/05/21 History Past Med/Surg History Medical History Fracture of triquetrum of right wrist Full code status Gastroenteritis History of arthritis History of seborrheic keratosis Right patella fracture Right shoulder injury 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) "Development of a skin lesion of the left upper arm Status post biopsy April 25, 2018 Moderately differentiated squamous cell carcinoma, completely excised Perineural invasion" Social History Smoking Status: Former smoker Preferred Language: [place] Communication Ability: Effective 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 Required: No Beliefs That Will Affect Care: None marital status: Current Living Situation: Spouse How many Children do You have: 2 Other Information That Helps Us Care for You: No Feels Safe at Home: Yes Assistive Devices: Wheelchair Review of Systems Review of Systems: Could not be reliably obtained Physical Exam Physical Exam: GENERAL: Comfortable, demented, lethargic, no respiratory distress SKIN: Pallor, warm HEENT: Pale palpebral conjunctivae, no ptosis, dry buccal mucosa NECK : Supple, no tenderness CHEST : Decreased breath sounds, no tenderness HEART : RRR, no obvious murmurs ABDOMEN: no distention, nontender EXTREMITIES : Minimal LE swelling, no LE tenderness, no other conspicuous deformities noted NEUROLOGIC : Lethargic, demented, no facial asymmetry, no other gross focality Results & Data Results & Data ([facility]) Vital Signs (Past 12 Hours) Vital Signs Temp Pulse Pulse Resp BP BP Pulse Ox 09/05/21 18:49 64 20 95 09/05/21 18:48 60 18 128/56 L 96 09/05/21 14:56 37.1 C 75 20 117/79 93 Laboratory Results Laboratory Results WBC 11.98 K/uL (4.8-10.8) H 09/05/21 17: RBC 4.27 M/uL (4.2-5.4) 09/05/21 17:22 Hgb 11.8 g/dL (12.0-16.0) L 09/05/21 17:22 Hct 35.6 % (37-47) L 09/05/21 17:22 MCV 83.4 fL (80-100) 09/05/21 17:22 MCH 27.6 pg (25-34) 09/05/21 17: MCHC 33.1 g/dL (32-36) 09/05/21 17:22 RDW Std Deviation 46.3 fL (36.4-46.3) 09/05/21 17:22 RDW Coeff of Sindhu 15.1 % (11.5-14.5) H 09/05/21 17:22 Plt Count 225 K/uL (130-400) 09/05/21 17:22 MPV 8.7 fL (7.4-10.4) 09/05/21 17:22 Immature Gran % (Auto) 0.2 % 09/05/21 17:22 Neut % (Auto) 63.9 % 09/05/21 17:22 Lymph % (Auto) 25.4 % 09/05/21 17:22 [place] % (Auto) 9.4 % 09/05/21 17:22 Eos % (Auto) 0.9 % 09/05/21 17:22 Baso % (Auto) 0.2 % 09/05/21 17:22 Neut # (Auto) 7.66 K/uL (1.4-6.5) H 09/05/21 17:22 Lymph # (Auto) 3.04 K/uL (1.2-3.4) 09/05/21 17:22 [place] # (Auto) 1.13 K/uL (0.11-0.59) H 09/05/21 17: Eos # (Auto) 0.11 K/uL (0-0.5) 09/05/21 17:22 Baso # (Auto) 0.02 K/uL (0-0.2) 09/05/21 17: Immature Gran # (Auto) 0.02 K/uL (0.00-0.02) 09/05/21 17:22 Sodium 136 mmol/L (136-145) 09/05/21 17:22 Potassium 4.7 mmol/L (3.5-5.1) 09/05/21 17: Chloride 106 mmol/L (98-107) 09/05/21 17: Carbon Dioxide 21 mmol/L (21-32) 09/05/21 17:22 Anion Gap 9.0 (3-11) 09/05/21 17:22 BUN 21 mg/dl (7-18) H 09/05/21 17: Creatinine 1.19 mg/dl (0.6-1.2) 09/05/21 17:22 Est Cr Clr Drug Dosing 24.6 ml/min 09/05/21 17:22 Est GFR ( Amer) 49.9 ml/min 09/05/21 17:22 Est GFR (Non-Af Amer) 43.1 ml/min 09/05/21 17:22 BUN/Creatinine Ratio 17.5 (10-20) 09/05/21 17:22 Glucose 98 mg/dl (70-99) 09/05/21 17:22 Calcium 9.2 mg/dl (8.5-10.1) 09/05/21 17:22 Magnesium 2.3 mg/dl (1.8-2.4) 09/05/21 17:22 Total Bilirubin 0.6 mg/dl (0.2-1) 09/05/21 17:22 AST 40 U/L (15-37) H 09/05/21 17:22 ALT 18 U/L (12-78) 09/05/21 17:22 Alkaline Phosphatase 112 U/L (45-117) 09/05/21 17:22 Ammonia < 10.0 umol/L (11-32) L 09/05/21 17:22 Total Creatine Kinase 1065 U/L (26-192) H 09/05/21 17:22 Troponin I 0.307 ng/ml (0-0.045) H* 09/05/21 17:22 Total Protein 7.8 gm/dl (6.4-8.2) 09/05/21 17:22 Albumin 2.9 gm/dl (3.4-5.0) L 09/05/21 17:22 Globulin 4.9 gm/dl (2.5-4.0) H 09/05/21 17:22 Albumin/Globulin Ratio 0.6 (0.9-2) L 09/05/21 17:22 TSH 6.300 uIu/ml (0.300-4.500) H 09/05/21 17:22 Free T4 1.21 ng/dl (0.8-1.6) 09/05/21 17:22 Impressions Chest X-Ray 09/05/21 16:33 XR chest 1V portable HISTORY: 80 years-old Female weakness acute weakness COMPARISON: Chest CT 12/14/2020, chest radiograph 06/13/2018 TECHNIQUE: Portable AP view of the chest FINDINGS: Cardiac silhouette is enlarged. Small pleural effusions with mild bibasilar consolidation. Emphysema. Pulmonary vascular congestion with mild interstitial coarsening. Calcified plaque of the thoracic aorta. No pneumothorax. Degenerative changes of the spine and left shoulder. Reverse right shoulder total joint arthroplasty. IMPRESSION: 1. Cardiomegaly with nonspecific interstitial coarsening. 2. Small pleural effusions with bibasilar consolidative opacities suggestive of atelectasis versus pneumonitis. 3. Emphysema. ACT 112: Negative or not required by law. The above report was generated using voice recognition software. It may contain grammatical, syntax or spelling errors. Electronically signed by: Art Luke M.D. 09/05/2021 7:[address] 09/05/21 18:26 CT head/brain wo con CLINICAL HISTORY: 80 years-old Female with fall. Acute head injury status post fall TECHNIQUE: Multiple axial CT images of the head were obtained without contrast. A dose lowering technique was utilized adhering to the principles of ALARA. CT DOSE: 844.62 mGy.cm COMPARISON: Head CT 08/22/2017 FINDINGS: Mildly motion degraded exam. No acute intracranial hemorrhage, midline shift, intracranial mass, hydrocephalus, territorial ischemia or abnormal extra-axial collection. Age-related involutional changes. White matter hypodensities suggest chronic microvascular ischemic disease. Cerebral vascular calcifications. The calvarium is intact. Prior bilateral lens repair. There is a 1.2 cm calcification of the left parietal scalp. There is severe complete opacification with dense secretions of the maxillary sinuses. Hypoplastic frontal sinuses with complete opacification involving numerous bilateral ethmoid air cells, right greater than left. Moderate size right mastoid effusion. IMPRESSION: 1. No acute intracranial abnormality or calvarial fracture. 2. Severe paranasal sinus disease, new from the 2017 comparison. ACT 112: Negative or not required by law. The above report was generated using voice recognition software. It may contain grammatical, syntax or spelling errors. Electronically signed by: Art Luke M.D. 09/05/2021 7:48 PM Diagnostic Findings EKG as per my read: Rate 60, NSR, normal axis, T wave abnormalities lateral leads, low voltage
[2021-09-05 20:32] LABS: Appearance Urine Clear (Clear); Bilirubin Urine Negative (Negative); Blood Urine Negative (Negative); Color Urine Dark Yellow; Epithelial Cell Urine Auto 0-5 /lpf (0-5); Glucose Urine UA Negative (Negative); Ketones Urine Trace (Negative); Leukocyte Esterase Urine 1+ (Negative); Nitrite Urine Negative (Negative); Protein Urine Negative (Negative); Specific Gravity Urine 1.021 (1.000-1.030); Urobilinogen Urine Negative (Negative)
[2021-09-05 20:54] LABS: Bacteria Urine Automated 2+ (Negative)
[2021-09-05 20:55] LABS: RBC Urine Automated 0-4 /hpf (0-4)
[2021-09-05 21:01] LABS: Partial Thromboplastin Ratio 1.3
[2021-09-05] MEDS ORDERED: PROMETHAZINE HCL 6.25 MG in SODIUM CHLORIDE 0.9% 50 ML IV PRN (22:47)
[2021-09-05] MEDS ORDERED: ACETAMINOPHEN 325 MG TAB PO PRN (22:47)
[2021-09-05] MEDS ORDERED: ALBUT/IPRATROP 3MG/0.5MG NEB 3 ML VIAL INH PRN (22:47)
[2021-09-06] MEDS: risperiDONE 0.5 MG TABLET PO SCH ×2 (00:42→21:46)
[2021-09-06] MEDS: TRAVOPROST Z 0.004% OPH SOLN 2.5 ML BTL OPB SCH ×2 (00:42→21:46)
[2021-09-06] MEDS: HEPARIN SOD 5,000 UNIT/0.5 ML VIAL SQ SCH ×4 (00:42→23:14)
[2021-09-06] MEDS: LEVOTHYROXINE SODIUM 75 MCG TABLET PO SCH (05:47)
[2021-09-06 08:00] LABS: Basophils # (auto) 0.02 K/uL (0-0.2); Basophils % (auto) 0.3 %; Eosinophils # (auto) 0.13 K/uL (0-0.5); Eosinophils % (auto) 1.8 %; Hemoglobin 11.3 g/dL (12.0-16.0); Immature Granulocytes # (auto) 0.01 K/uL (0.00-0.02); Immature Granulocytes % (auto) 0.1 %; Lymphocytes # (auto) 1.54 K/uL (1.2-3.4); Lymphocytes % (auto) 21.6 %; Mean Corpuscular Hemoglobin 27.5 pg (25-34); Mean Corpuscular Hgb Conc 33.2 g/dL (32-36); Mean Corpuscular Volume 82.7 fL (80-100); Mean Platelet Volume 8.1 fL (7.4-10.4); Monocytes # (auto) 0.79 K/uL (0.11-0.59); Monocytes % (auto) 11.1 %; Neutrophils # (auto) 4.64 K/uL (1.4-6.5); Neutrophils % (auto) 65.1 %; Platelet Count 161 K/uL (130-400); RDW Coefficient of Variation 14.8 % (11.5-14.5); RDW Standard Deviation 44.9 fL (36.4-46.3); Red Blood Count 4.11 M/uL (4.2-5.4); White Blood Count 7.13 K/uL (4.8-10.8)
[2021-09-06] MEDS: ROFLUMILAST 500 MCG TAB PO SCH ×2 (08:28→10:46)
[2021-09-06] MEDS: lisinopril 5 MG TAB PO SCH ×2 (08:29→10:45)
[2021-09-06] MEDS: FLUTICASONE/VILANTEROL 100/25MCG 14 PUFFS/INHALER INH SCH (08:29)
[2021-09-06] MEDS: PROPRANOLOL HCL 60 MG LA CAP PO SCH ×2 (08:29→10:46)
[2021-09-06] MEDS: FLUTICASONE PROPIONATE NA SPR 16 GM BTL SCH (08:29)
[2021-09-06] MEDS: CLOPIDOGREL BISULFATE 75 MG TAB PO SCH ×2 (08:29→10:45)
[2021-09-06 08:43] LABS: Albumin Globulin Ratio 0.5 (0.9-2); Albumin Level 2.2 gm/dl (3.4-5.0); BUN Creatinine Ratio 17.9 (10-20); Bilirubin,Total 0.5 mg/dl (0.2-1); Calcium 8.2 mg/dl (8.5-10.1); Creatinine Clr Calc Pharmacy 39.5 ml/min; Est GFR (African American) 73.9 ml/min; Est GFR (Non-African American) 63.8 ml/min; Globulin 4.3 gm/dl (2.5-4.0); Potassium 3.9 mmol/L (3.5-5.1); Total Protein 6.5 gm/dl (6.4-8.2)
--- NOTE | 2021-09-06 16:43 | Hospitalist Progress Note ---
Date of Service September 06, 2021 Assessment & Plan (1) Rhabdomyolysis: Plan: History obtained from patient, caregiver, and records. Limited history from patient secondary to dementia. 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 Patient possibly fell off the couch when she fell asleep. Patient's unable to get patient up from the floor right away. had to get help hours later from caregivers who are not at patient's home 24 hours. CK on admission over 1,000, now down to 500 after given IVF Cont. to monitor BMP and CK AMIRA - now resolved Cr mildly elevated at 1.2 on admission, now down to 0.9 (baseline 0.9-1) Pt is thin and so lower Cr expected Elevated troponin - likely secondary to above - TTE if with progression - peaked at 0.3 and downtrended, no chest pain - Medical telemetry given troponin elevation Abnormal LFTs - mildly elevated - now resolved - also secondary to above - cont. to monitor Dementia -Currently patient not very cooperative -Has some caregivers at home but not 24-hour care -CT head negative -We will obtain vitamin B12 level and vitamin B1 levels Hypertension, BP on the lower side hx PAD as per records COPD, pulmonary status at baseline SCCA LUE sp surgery ongoing radiation tx Hypothyroidism, TSH slight elevated past tobacco abuse PT OT eval Social service RE discharge planning Full code for now chain person - patient's son, Mr. Ross Orozco (contact #[phone]) Admission and Anticipated Discharge Date Admission Date: September 05, 2021 Subjective Patient seen in follow-up of fall (from couch), rhabdo, dementia Currently she is lying in bed, in no acute distress She does not answer questions appropriately She does not wish caregivers to examine her or talk to her She is only somewhat cooperative Denies any chest pain, shortness of breath, headache, abdominal pain Says that she is "fine" Review of Systems Review of Systems: Unobtainable due to cognitive status Physical Exam Physical Exam: GENERAL: Elderly thin female, awake, in no acute distress HEENT: NC/AT. LILIA, PERRL. dry buccal mucosa NECK : Supple, no tenderness CHEST : CTAB HEART : RRR, no obvious murmurs ABDOMEN: no distention, nontender, + bowel sounds EXTREMITIES : Minimal LE swelling, no LE tenderness, moves extremities NEUROLOGIC : Awake and alert however not answering questions appropriately (hx of dementia). No facial asymmetry, speech fluent. Moves extremities. SKIN: Pallor, warm, dry Results & Data Results & Data ([facility]) Vital Signs (Past 12 Hours) Vital Signs Pulse Resp BP Pulse Ox 09/06/21 12:00 75 18 143/67 H 100 09/06/21 08:00 75 19 99 Laboratory Results 09/06/21 09/06/21 09/06/21 Range/Units 07:44 07:44 00:19 WBC 7.13 (4.8-10.8) K/uL RBC 4.11 L (4.2-5.4) M/uL Hgb 11.3 L (12.0-16.0) g/dL Hct 34.0 L (37-47) % MCV 82.7 (80-100) fL MCH 27.5 (25-34) pg MCHC 33.2 (32-36) g/dL RDW Std Deviation 44.9 (36.4-46.3) fL RDW Coeff of Sindhu 14.8 H (11.5-14.5) % Plt Count 161 (130-400) K/uL MPV 8.1 (7.4-10.4) fL Immature Gran % (Auto) 0.1 % Neut % (Auto) 65.1 % Lymph % (Auto) 21.6 % [place] % (Auto) 11.1 % Eos % (Auto) 1.8 % Baso % (Auto) 0.3 % Neut # (Auto) 4.64 (1.4-6.5) K/uL Lymph # (Auto) 1.54 (1.2-3.4) K/uL [place] # (Auto) 0.79 H (0.11-0.59) K/uL Eos # (Auto) 0.13 (0-0.5) K/uL Baso # (Auto) 0.02 (0-0.2) K/uL Immature Gran # (Auto) 0.01 (0.00-0.02) K/uL APTT (21.0-31.0) Seconds PTT Ratio Sodium 143 D (136-145) mmol/L Potassium 3.9 D (3.5-5.1) mmol/L Chloride 115 H (98-107) mmol/L Carbon Dioxide 20 L (21-32) mmol/L Anion Gap 8.0 (3-11) BUN 15 (7-18) mg/dl Creatinine 0.86 D (0.6-1.2) mg/dl Est Cr Clr Drug Dosing 39.5 ml/min Est GFR ( Amer) 73.9 ml/min Est GFR (Non-Af Amer) 63.8 ml/min BUN/Creatinine Ratio 17.9 (10-20) Glucose 88 (70-99) mg/dl Calcium 8.2 L (8.5-10.1) mg/dl Magnesium (1.8-2.4) mg/dl Total Bilirubin 0.5 (0.2-1) mg/dl AST 26 (15-37) U/L ALT 14 (12-78) U/L Alkaline Phosphatase 97 (45-117) U/L Ammonia (11-32) umol/L Total Creatine Kinase 509 H (26-192) U/L Troponin I 0.117 H* (0-0.045) ng/ml Total Protein 6.5 (6.4-8.2) gm/dl Albumin 2.2 L (3.4-5.0) gm/dl Globulin 4.3 H (2.5-4.0) gm/dl Albumin/Globulin Ratio 0.5 L (0.9-2) TSH (0.300-4.500) uIu/ml Free T4 (0.8-1.6) ng/dl Urine Color Urine Appearance (Clear) Urine pH (4.5-7.5) Ur Specific [place] (1.000-1.030) Urine Protein (Negative) Urine Glucose (UA) (Negative) Urine Ketones (Negative) Urine Blood (Negative) Urine Nitrite (Negative) Urine Bilirubin (Negative) Urine Urobilinogen (Negative) Ur Leukocyte Esterase (Negative) Urine WBC (Auto) (0-5) /hpf Urine RBC (Auto) (0-4) /hpf U Hyaline Cast (Auto) (0-5) /lpf U Epithel Cells (Auto) (0-5) /lpf Urine Bacteria (Auto) (Negative) SARS-CoV-2, RNA, NAAT (NEGATIVE) 09/05/21 09/05/2121 Range/Units 20:18 20:09 17:22 WBC (4.8-10.8) K/uL RBC (4.2-5.4) M/uL Hgb (12.0-16.0) g/dL Hct (37-47) % MCV (80-100) fL MCH (25-34) pg MCHC (32-36) g/dL RDW Std Deviation (36.4-46.3) fL RDW Coeff of Sindhu (11.5-14.5) % Plt Count (130-400) K/uL MPV (7.4-10.4) fL Immature Gran % (Auto) % Neut % (Auto) % Lymph % (Auto) % [place] % (Auto) % Eos % (Auto) % Baso % (Auto) % Neut # (Auto) (1.4-6.5) K/uL Lymph # (Auto) (1.2-3.4) K/uL [place] # (Auto) (0.11-0.59) K/uL Eos # (Auto) (0-0.5) K/uL Baso # (Auto) (0-0.2) K/uL Immature Gran # (Auto) (0.00-0.02) K/uL APTT 34.0 H (21.0-31.0) Seconds PTT Ratio 1.3 Sodium (136-145) mmol/L Potassium (3.5-5.1) mmol/L Chloride (98-107) mmol/L Carbon Dioxide (21-32) mmol/L Anion Gap (3-11) BUN (7-18) mg/dl Creatinine (0.6-1.2) mg/dl Est Cr Clr Drug Dosing ml/min Est GFR ( Amer) ml/min Est GFR (Non-Af Amer) ml/min BUN/Creatinine Ratio (10-20) Glucose (70-99) mg/dl Calcium (8.5-10.1) mg/dl Magnesium (1.8-2.4) mg/dl Total Bilirubin (0.2-1) mg/dl AST (15-37) U/L ALT (12-78) U/L Alkaline Phosphatase (45-117) U/L Ammonia (11-32) umol/L Total Creatine Kinase (26-192) U/L Troponin I (0-0.045) ng/ml Total Protein (6.4-8.2) gm/dl Albumin (3.4-5.0) gm/dl Globulin (2.5-4.0) gm/dl Albumin/Globulin Ratio (0.9-2) TSH (0.300-4.500) uIu/ml Free T4 (0.8-1.6) ng/dl Urine Color Dark Yellow Urine Appearance Clear (Clear) Urine pH 5.0 (4.5-7.5) Ur Specific [place] 1.021 (1.000-1.030) Urine Protein Negative (Negative) Urine Glucose (UA) Negative (Negative) Urine Ketones Trace H (Negative) Urine Blood Negative (Negative) Urine Nitrite Negative (Negative) Urine Bilirubin Negative (Negative) Urine Urobilinogen Negative (Negative) Ur Leukocyte Esterase 1+ H (Negative) Urine WBC (Auto) 10-30 H (0-5) /hpf Urine RBC (Auto) 0-4 (0-4) /hpf U Hyaline Cast (Auto) 1-5 (0-5) /lpf U Epithel Cells (Auto) 0-5 (0-5) /lpf Urine Bacteria (Auto) 2+ H (Negative) SARS-CoV-2, RNA, NAAT NEGATIVE (NEGATIVE) 09/05/21 09/05/21 09/05/21 Range/Units 17:22 17:22 17:22 WBC 11.98 H (4.8-10.8) K/uL RBC 4.27 (4.2-5.4) M/uL Hgb 11.8 L (12.0-16.0) g/dL Hct 35.6 L (37-47) % MCV 83.4 (80-100) fL MCH 27.6 (25-34) pg MCHC 33.1 (32-36) g/dL RDW Std Deviation 46.3 (36.4-46.3) fL RDW Coeff of Sindhu 15.1 H (11.5-14.5) % Plt Count 225 (130-400) K/uL MPV 8.7 (7.4-10.4) fL Immature Gran % (Auto) 0.2 % Neut % (Auto) 63.9 % Lymph % (Auto) 25.4 % [place] % (Auto) 9.4 % Eos % (Auto) 0.9 % Baso % (Auto) 0.2 % Neut # (Auto) 7.66 H (1.4-6.5) K/uL Lymph # (Auto) 3.04 (1.2-3.4) K/uL [place] # (Auto) 1.13 H (0.11-0.59) K/uL Eos # (Auto) 0.11 (0-0.5) K/uL Baso # (Auto) 0.02 (0-0.2) K/uL Immature Gran # (Auto) 0.02 (0.00-0.02) K/uL APTT (21.0-31.0) Seconds PTT Ratio Sodium 136 (136-145) mmol/L Potassium 4.7 (3.5-5.1) mmol/L Chloride 106 (98-107) mmol/L Carbon Dioxide 21 (21-32) mmol/L Anion Gap 9.0 (3-11) BUN 21 H (7-18) mg/dl Creatinine 1.19 (0.6-1.2) mg/dl Est Cr Clr Drug Dosing 24.6 ml/min Est GFR ( Amer) 49.9 ml/min Est GFR (Non-Af Amer) 43.1 ml/min BUN/Creatinine Ratio 17.5 (10-20) Glucose 98 (70-99) mg/dl Calcium 9.2 (8.5-10.1) mg/dl Magnesium 2.3 (1.8-2.4) mg/dl Total Bilirubin 0.6 (0.2-1) mg/dl AST 40 H (15-37) U/L ALT 18 (12-78) U/L Alkaline Phosphatase 112 (45-117) U/L Ammonia < 10.0 L (11-32) umol/L Total Creatine Kinase 1065 H (26-192) U/L Troponin I 0.307 H* (0-0.045) ng/ml Total Protein 7.8 (6.4-8.2) gm/dl Albumin 2.9 L (3.4-5.0) gm/dl Globulin 4.9 H (2.5-4.0) gm/dl Albumin/Globulin Ratio 0.6 L (0.9-2) TSH 6.300 H (0.300-4.500) uIu/ml Free T4 1.21 (0.8-1.6) ng/dl Urine Color Urine Appearance (Clear) Urine pH (4.5-7.5) Ur Specific [place] (1.000-1.030) Urine Protein (Negative) Urine Glucose (UA) (Negative) Urine Ketones (Negative) Urine Blood (Negative) Urine Nitrite (Negative) Urine Bilirubin (Negative) Urine Urobilinogen (Negative) Ur Leukocyte Esterase (Negative) Urine WBC (Auto) (0-5) /hpf Urine RBC (Auto) (0-4) /hpf U Hyaline Cast (Auto) (0-5) /lpf U Epithel Cells (Auto) (0-5) /lpf Urine Bacteria (Auto) (Negative) SARS-CoV-2, RNA, NAAT (NEGATIVE) Medications Administered Current Inpatient Medications Acetaminophen (Acetaminophen 325 Mg Tab) 650 mg PO Q4H PRN PRN Reason: Pain or Fever Stop: 10/05/21 22:46 Albuterol (Albut/Ipratrop 3mg/0.5mg Neb 3 Ml Vial) 3 ml INH QID PRN PRN Reason: Shortness Of Breath Stop: 10/05/21 22:46 Clopidogrel Bisulfate (Clopidogrel Bisulfate 75 Mg Tab) 75 mg PO DAILY ORIN Stop: 10/06/21 08:59 Last Admin: 09/06/21 10:45 Dose: 75 mg Documented by: Fluticasone Propionate (Fluticasone Propionate Na Spr 16 Gm Btl) 2 sprays NA DAILY ORIN Stop: 10/06/21 08:59 Last Admin: 09/06/21 08:29 Dose: Not Given Documented by: Fluticasone/Vilanterol (Fluticasone/Vilanterol 100/25mcg 14 Puffs/Inhaler) 1 puffs INH DAILY ORIN Stop: 10/06/21 08:59 Last Admin: 09/06/21 08:29 Dose: Not Given Documented by: Heparin Sodium (Porcine) (Heparin Sod 5,000 Unit/0.5 Ml Vial) 5,000 units SQ Q8H ORIN Stop: 10/06/21 00:00 Last Admin: 09/06/21 08:28 Dose: 5,000 units Documented by: Promethazine HCl 6.25 mg/ (Sodium Chloride) 50.25 mls @ 201 mls/hr IV Q6H PRN PRN Reason: Nausea And Vomiting Stop: 10/05/21 22:46 Levothyroxine Sodium (Levothyroxine Sodium 75 Mcg Tablet) 75 mcg PO DAILYBB [facility] Stop: 10/06/21 06:29 Last Admin: 09/06/21 05:47 Dose: Not Given Documented by: Lisinopril (Lisinopril 5 Mg Tab) 5 mg PO DAILY ORIN Stop: 10/06/21 08:59 Last Admin: 09/06/21 10:45 Dose: 5 mg Documented by: Propranolol HCl (Propranolol Hcl 60 Mg [place]) 60 mg PO DAILY ORIN Stop: 10/06/21 08:59 Last Admin: 09/06/21 10:46 Dose: 60 mg Documented by: Risperidone (Risperidone 0.5 Mg Tablet) 0.25 mg PO HS [facility] Stop: 10/05/21 22:46 Last Admin: 09/06/21 00:42 Dose: Not Given Documented by: Roflumilast (Roflumilast 500 Mcg Tab) 500 mcg PO DAILY [facility] Stop: 10/06/21 08:59 Last Admin: 09/06/21 10:46 Dose: 500 mcg Documented by: Travoprost (Travoprost Z 0.004% Oph Soln 2.5 Ml Btl) 1 drops OPB HS [facility] Stop: 10/05/21 22:46 Last Admin: 09/06/21 00:42 Dose: Not Given Documented by:
[2021-09-07 05:26] LABS: Hematocrit (blood only) 34.1 % (37-47); Hemoglobin 11.3 g/dL (12.0-16.0); Mean Corpuscular Hemoglobin 27.4 pg (25-34); Mean Corpuscular Hgb Conc 33.1 g/dL (32-36); Mean Corpuscular Volume 82.6 fL (80-100); Mean Platelet Volume 8.3 fL (7.4-10.4); Platelet Count 192 K/uL (130-400); RDW Coefficient of Variation 14.6 % (11.5-14.5); RDW Standard Deviation 43.8 fL (36.4-46.3); Red Blood Count 4.13 M/uL (4.2-5.4); White Blood Count 7.56 K/uL (4.8-10.8)
[2021-09-07 05:45] LABS: BUN Creatinine Ratio 14.9 (10-20); Calcium 8.6 mg/dl (8.5-10.1); Creatinine Clr Calc Pharmacy 39.5 ml/min; Est GFR (African American) 73.9 ml/min; Est GFR (Non-African American) 63.8 ml/min; Magnesium 2.1 mg/dl (1.8-2.4); Potassium 3.8 mmol/L (3.5-5.1)
[2021-09-07 05:48] LABS: Phosphorus 2.6 mg/dl (2.5-4.9)
--- NOTE | 2021-09-07 06:13 | Electrocardiogram Report ---
Test Reason : Blood Pressure : / mmHG Vent. Rate : 062 BPM Atrial Rate : 062 BPM P-R Int : 138 ms QRS Dur : 076 ms QT Int : 510 ms P-R-T Axes : 069 055 122 degrees QTc Int : 517 ms Normal sinus rhythm Low voltage QRS T wave abnormality, consider anterolateral ischemia Prolonged QT Abnormal ECG When compared with ECG of 13-JUN-2018 22:01, VA interval has increased T wave inversion now evident in Anterolateral leads QT has lengthened Confirmed by Hong Garcia ([id number]) on 09/07/2021 6:12:52 AM Referred By: REFERRED SELF Confirmed By:Hong Garcia
[2021-09-07] MEDS: LEVOTHYROXINE SODIUM 75 MCG TABLET PO SCH (07:18)
[2021-09-07] MEDS: CLOPIDOGREL BISULFATE 75 MG TAB PO SCH (08:02)
[2021-09-07] MEDS: FLUTICASONE PROPIONATE NA SPR 16 GM BTL SCH (08:04)
[2021-09-07] MEDS: PROPRANOLOL HCL 60 MG LA CAP PO SCH (08:05)
[2021-09-07] MEDS: FLUTICASONE/VILANTEROL 100/25MCG 14 PUFFS/INHALER INH SCH (08:05)
[2021-09-07] MEDS: lisinopril 5 MG TAB PO SCH (08:05)
[2021-09-07] MEDS: ROFLUMILAST 500 MCG TAB PO SCH (08:06)
[2021-09-07] MEDS: HEPARIN SOD 5,000 UNIT/0.5 ML VIAL SQ SCH ×2 (08:08→16:28)
[2021-09-07] MEDS: risperiDONE 0.5 MG TABLET PO SCH (21:35)
[2021-09-07] MEDS: TRAVOPROST Z 0.004% OPH SOLN 2.5 ML BTL OPB SCH (21:35)
[2021-09-08] MEDS: HEPARIN SOD 5,000 UNIT/0.5 ML VIAL SQ SCH ×3 (00:23→15:20)
[2021-09-08] MEDS ORDERED: SODIUM CHLORIDE 0.9% 1000ML 1,000 ML IV SCH (05:15)
[2021-09-08] MEDS: LEVOTHYROXINE SODIUM 75 MCG TABLET PO SCH (06:02)
[2021-09-08 08:00] LABS: Hematocrit (blood only) 35.3 % (37-47); Hemoglobin 11.7 g/dL (12.0-16.0); Mean Corpuscular Hemoglobin 27.8 pg (25-34); Mean Corpuscular Hgb Conc 33.1 g/dL (32-36); Mean Corpuscular Volume 83.8 fL (80-100); Mean Platelet Volume 8.2 fL (7.4-10.4); Platelet Count 199 K/uL (130-400); RDW Coefficient of Variation 14.7 % (11.5-14.5); RDW Standard Deviation 45.4 fL (36.4-46.3); Red Blood Count 4.21 M/uL (4.2-5.4); White Blood Count 7.16 K/uL (4.8-10.8)
[2021-09-08 08:44] LABS: BUN Creatinine Ratio 14.7 (10-20); Calcium 8.7 mg/dl (8.5-10.1); Est GFR (African American) 68.2 ml/min; Est GFR (Non-African American) 58.8 ml/min; Magnesium 2.1 mg/dl (1.8-2.4); Phosphorus 3.4 mg/dl (2.5-4.9); Potassium 4.3 mmol/L (3.5-5.1)
[2021-09-08] MEDS: lisinopril 5 MG TAB PO SCH (09:21)
[2021-09-08] MEDS: ROFLUMILAST 500 MCG TAB PO SCH (09:22)
[2021-09-08] MEDS: PROPRANOLOL HCL 60 MG LA CAP PO SCH (09:22)
[2021-09-08] MEDS: CLOPIDOGREL BISULFATE 75 MG TAB PO SCH (09:23)
[2021-09-08] MEDS: FLUTICASONE PROPIONATE NA SPR 16 GM BTL SCH (09:23)
[2021-09-08] MEDS: FLUTICASONE/VILANTEROL 100/25MCG 14 PUFFS/INHALER INH SCH ×2 (09:24→10:38)
--- NOTE | 2021-09-08 09:37 | Hospitalist Progress Note ---
Date of Service September 07, 2021 Assessment & Plan (1) Rhabdomyolysis: Plan: History obtained from patient, caregiver, and records. Limited history from patient secondary to dementia. 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 Patient possibly fell off the couch when she fell asleep. Patient's unable to get patient up from the floor right away. had to get help hours later from caregivers who are not at patient's home 24 hours. CK on admission over 1,000, now down to 500 after given IVF Cont. to monitor BMP and CK AMIRA - now resolved Cr mildly elevated at 1.2 on admission, now down to 0.9 (baseline 0.9-1) Pt is thin and so lower Cr expected Elevated troponin - likely secondary to above - TTE if with progression - peaked at 0.3 and downtrended, no chest pain - Medical telemetry given troponin elevation Abnormal LFTs - mildly elevated - now resolved - also secondary to above - cont. 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 Ross Orozco (contact #[phone]) Admission and Anticipated Discharge Date Admission Date: September 05, 2021 Subjective Patient seen in follow-up of fall (from couch), rhabdo, dementia Currently she is lying in bed, in no acute distress She does not answer all questions appropriately She is more cooperative today with me, allows physical exam without any complaints However she refused her medications this morning Denies any chest pain, shortness of breath, headache, abdominal pain Says that she is "fine" Review of Systems Review of Systems: All systems reviewed & are unremarkable except as noted in Subjective Physical Exam Physical Exam: GENERAL: Elderly thin female, awake, in no acute distress HEENT: NC/AT. EOMI, PERRL. NECK : Supple, no tenderness CHEST : CTAB HEART : RRR, no obvious murmurs ABDOMEN: no distention, nontender, + bowel sounds EXTREMITIES : no LE swelling, moves extremities NEUROLOGIC : Awake and alert however not answering all questions appropriately (hx of dementia). No facial asymmetry, speech fluent. Moves extremities. SKIN: Pallor, warm, dry Results & Data Results & Data ([facility]) Vital Signs (Past 12 Hours) Vital Signs Temp Pulse Pulse Resp BP Pulse Ox 09/07/21 23:16 36.5 C 86 18 131/61 97 09/07/21 23:00 78
[2021-09-08 11:08] LABS: Allen Test Pos (Pos); Base Excess ABG -9.9 mEq/L (-9-1.8); HCO3 ABG 14 mmol/L (19-24); PCO2 ABG 24 mmHg (35-46); PO2 ABG 99 mmHg (80-95); pH ABG 7.38 (7.35-7.45)
[2021-09-08 12:17] LABS: BUN Creatinine Ratio 14.1 (10-20); Calcium 8.7 mg/dl (8.5-10.1); Creatinine Clr Calc Pharmacy 34.3 ml/min; Est GFR (African American) 62.4 ml/min; Est GFR (Non-African American) 53.8 ml/min; Potassium 4.6 mmol/L (3.5-5.1)
[2021-09-08] MEDS ORDERED: SODIUM BICARBONATE 8.4% 150 MEQ in DEXTROSE 5% 1,000 ML IV SCH (13:00)
--- NOTE | 2021-09-08 13:00 | Hospitalist Progress Note ---
Date of Service September 08, 2021 Assessment & Plan (1) Rhabdomyolysis: Plan: Improved CK and renal function after fluid resuscitation. Stopping IVF now. Resolved. (2) Acute metabolic encephalopathy: Plan: Underlying dementia but appears more confused than her described baseline at home per notes. Likely related to underlying infection, hospitalization and possibly electrolyte issue. Cont plans to correct these issues and reorient as needed. (3) Hyperchloremic metabolic acidosis: Plan: Likely from recent continuous infusion of NSS in setting of rhabdomyolisis. Stopped that this am and started bicarb drip. There is no jose antonio acidosis present. Consulted Nephrology for recommendations. (4) UTI (urinary tract infection): Plan: Alpha strep grew in culture. Quigley still in place. Will repeat UA now with recent history of at least two rounds of antibiotics to treat UTI as outpatient prior to admission, and confusion which may be explained by persistent underlying infection. Starting Amoxicillin course now and would complete the course pending any new bacterial growth in new culture. (5) Elevated troponin: Plan: 0.3 to 0.117 a couple of days back. EKG on admission with evidence of TWI and some concern for ischemia, which is doubtful at this point. Trop trended down already two days back and no need to repeat now. However, would repeat EKG now to recheck those initial changes. Echo could be considered, however, she currently would not be compliant with that study. (6) Dementia: Plan: h/o dementia with caregivers at home, now with insults from UTI and rhabdo as well as hospitalization. High risk for delirium which is likely going on intermittently. Not currently combative. Cont reorienting and treat underlying issues. (7) Hypoglycemia: Plan: Poor PO intake. Nutrition consult ordered to monitor caloric intake. Diet was liberalized. (8) Hypothyroidism: Plan: Cont Synthroid per home regimen. (9) PAD (peripheral artery disease): Plan: chronic, per records. Cont medical management with plavix, lisinopril, BB, statin on hold in setting of rhabdo. (10) CKD (chronic kidney disease), stage III: Plan: at her baseline. Poor PO intake contributing to overall poor urine output. Quigley to track accurate I/Os. (11) Pulmonary nodule/lesion, solitary: Plan: followup as outpatient. (12) Pulmonary fibrosis: Plan: Oxygenating well on room air and no current respiratory symptoms. (13) DVT prophylaxis: Plan: Heparin Full code Dispo-cont telemetry. Plan for [facility] at discharge, likely after the weekend. [facility] Admission and Anticipated Discharge Date Admission Date: September 05, 2021 Subjective 80 yo F with h/o dementia brought in by family after being found on the floor and confused. Currently being treated for UTI and rhabdo. Hypoglycemia this am, possibly from not eating which was reported by nursing staff. Poor urine output into quigley per overnight staff so NSS was started. Bicarb noted to be decreasing also. Patient states that she is at [facility]" and declines to know the date She is unable to provide a history and continues to ask me to get her out of here. Nurse at bedside and we discussed her care plan together. Review of Systems Review of Systems: All systems were reviewed and negative except as indicated above and she denies any pain. Physical Exam Physical Exam: CONSTITUTIONAL: frail, cachectic-appearing, vitals as above, NAD EYES: normal conjunctivae, no scleral icterus ENT: external ear and nose normal, poor dentition with missing teeth. NECK: trachea midline RESPIRATORY: clear to auscultation bilaterally, no crackles, rales or wheezes, normal respiratory effort. Difficulty examining her right lung as patient was not cooperative with exam. CARDIOVASCULAR: regular rate and rhythm, S1 and 2 heard without murmurs, gallops or rubs, no JVD, no peripheral edema GASTROINTESTINAL: soft, nontender, ND, no guarding MUSCULOSKELETAL: could not assess her strength although she is folded up in bed with her legs under her and active movement is not much when asked to straighten her legs. Generalized weakness suspected. Head NC/AT. SKIN: warm and dry, very dry and flaky in spots. Has growths on her arm that appear tuberous, chronic in nature NEUROLOGIC: No facial palsy, no dysarthria. CN 2-12 grossly intact, normal cognition, normal speech, no tremor. Could not assess sensation and exam limited by dementia and ongoing confusion. PSYCHIATRIC: alert , uncooperative with exam although not combative. Disoriented. Results & Data Results & Data ([facility]) Vital Signs (Past 12 Hours) Vital Signs Temp Pulse Resp BP Pulse Ox 09/08/21 11:00 36.6 C 75 16 125/58 L 93 09/08/21 09:20 88 126/62 09/08/21 07:00 36.5 C 94 H 16 128/58 L 94 09/08/21 03:54 36.5 C 80 16 137/69 96 Laboratory Results Short CBC 09/05/21 09/05/21 09/05/21 Range/Units 17:22 17:22 17:22 WBC (4.8-10.8) K/uL RBC 4.27 (4.2-5.4) M/uL Hgb (12.0-16.0) g/dL Hct (37-47) % MCV 83.4 (80-100) fL MCH 27.6 (25-34) pg MCHC 33.1 (32-36) g/dL RDW Std Deviation 46.3 (36.4-46.3) fL RDW Coeff of Sindhu 15.1 H (11.5-14.5) % Plt Count (130-400) K/uL MPV 8.7 (7.4-10.4) fL Immature Gran % (Auto) 0.2 % Neut % (Auto) 63.9 % Lymph % (Auto) 25.4 % Stewart % (Auto) 9.4 % Eos % (Auto) 0.9 % Baso % (Auto) 0.2 % Neut # (Auto) 7.66 H (1.4-6.5) K/uL Lymph # (Auto) 3.04 (1.2-3.4) K/uL Stewart # (Auto) 1.13 H (0.11-0.59) K/uL Eos # (Auto) 0.11 (0-0.5) K/uL Baso # (Auto) 0.02 (0-0.2) K/uL Immature Gran # (Auto) 0.02 (0.00-0.02) K/uL APTT (21.0-31.0) Seconds PTT Ratio ABG pH (7.35-7.45) ABG pCO2 (35-46) mmHg ABG pO2 (80-95) mmHg ABG HCO3 (19-24) mmol/L ABG O2 Saturation (90-95) % ABG Base Excess (-9-1.8) mEq/L Ross Test (Pos) Barometric Pressure mm/Hg Oxygen Given Sodium 136 (136-145) mmol/L Potassium 4.7 (3.5-5.1) mmol/L Chloride 106 (98-107) mmol/L Carbon Dioxide 21 (21-32) mmol/L Anion Gap 9.0 (3-11) BUN 21 H (7-18) mg/dl Creatinine 1.19 (0.6-1.2) mg/dl Est Cr Clr Drug Dosing 24.6 ml/min Est GFR ( Amer) 49.9 ml/min Est GFR (Non-Af Amer) 43.1 ml/min BUN/Creatinine Ratio 17.5 (10-20) Glucose 98 (70-99) mg/dl POC Glucose (70-99) mg/dl Lactate (0.4-2.0) mmol/L Calcium 9.2 (8.5-10.1) mg/dl Phosphorus (2.5-4.9) mg/dl Magnesium 2.3 (1.8-2.4) mg/dl Total Bilirubin 0.6 (0.2-1) mg/dl AST 40 H (15-37) U/L ALT 18 (12-78) U/L Alkaline Phosphatase 112 (45-117) U/L Ammonia < 10.0 L (11-32) umol/L Total Creatine Kinase 1065 H (26-192) U/L Troponin I 0.307 H* (0-0.045) ng/ml Total Protein 7.8 (6.4-8.2) gm/dl Albumin 2.9 L (3.4-5.0) gm/dl Globulin 4.9 H (2.5-4.0) gm/dl Albumin/Globulin Ratio 0.6 L (0.9-2) Lipase (73-393) U/L Vitamin B12 (193-986) pg/ml TSH 6.300 H (0.300-4.500) uIu/ml Free T4 1.21 (0.8-1.6) ng/dl Urine Color Urine Appearance (Clear) Urine pH (4.5-7.5) Ur Specific [place] (1.000-1.030) Urine Protein (Negative) Urine Glucose (UA) (Negative) Urine Ketones (Negative) Urine Blood (Negative) Urine Nitrite (Negative) Urine Bilirubin (Negative) Urine Urobilinogen (Negative) Ur Leukocyte Esterase (Negative) Urine WBC (Auto) (0-5) /hpf Urine RBC (Auto) (0-4) /hpf U Hyaline Cast (Auto) (0-5) /lpf U Epithel Cells (Auto) (0-5) /lpf Urine Bacteria (Auto) (Negative) SARS-CoV-2, RNA, NAAT (NEGATIVE) 09/05/21 09/05/21 09/05/21 Range/Units 17:22 20:09 20:18 WBC (4.8-10.8) K/uL RBC (4.2-5.4) M/uL Hgb (12.0-16.0) g/dL Hct (37-47) % MCV (80-100) fL MCH (25-34) pg MCHC (32-36) g/dL RDW Std Deviation (36.4-46.3) fL RDW Coeff of Sindhu (11.5-14.5) % Plt Count (130-400) K/uL MPV (7.4-10.4) fL Immature Gran % (Auto) % Neut % (Auto) % Lymph % (Auto) % Stewart % (Auto) % Eos % (Auto) % Baso % (Auto) % Neut # (Auto) (1.4-6.5) K/uL Lymph # (Auto) (1.2-3.4) K/uL Stewart # (Auto) (0.11-0.59) K/uL Eos # (Auto) (0-0.5) K/uL Baso # (Auto) (0-0.2) K/uL Immature Gran # (Auto) (0.00-0.02) K/uL APTT 34.0 H (21.0-31.0) Seconds PTT Ratio 1.3 ABG pH (7.35-7.45) ABG pCO2 (35-46) mmHg ABG pO2 (80-95) mmHg ABG HCO3 (19-24) mmol/L ABG O2 Saturation (90-95) % ABG Base Excess (-9-1.8) mEq/L Ross Test (Pos) Barometric Pressure mm/Hg Oxygen Given Sodium (136-145) mmol/L Potassium (3.5-5.1) mmol/L Chloride (98-107) mmol/L Carbon Dioxide (21-32) mmol/L Anion Gap (3-11) BUN (7-18) mg/dl Creatinine (0.6-1.2) mg/dl Est Cr Clr Drug Dosing ml/min Est GFR ( Amer) ml/min Est GFR (Non-Af Amer) ml/min BUN/Creatinine Ratio (10-20) Glucose (70-99) mg/dl POC Glucose (70-99) mg/dl Lactate (0.4-2.0) mmol/L Calcium (8.5-10.1) mg/dl Phosphorus (2.5-4.9) mg/dl Magnesium (1.8-2.4) mg/dl Total Bilirubin (0.2-1) mg/dl AST (15-37) U/L ALT (12-78) U/L Alkaline Phosphatase (45-117) U/L Ammonia (11-32) umol/L Total Creatine Kinase (26-192) U/L Troponin I (0-0.045) ng/ml Total Protein (6.4-8.2) gm/dl Albumin (3.4-5.0) gm/dl Globulin (2.5-4.0) gm/dl Albumin/Globulin Ratio (0.9-2) Lipase (73-393) U/L Vitamin B12 (193-986) pg/ml TSH (0.300-4.500) uIu/ml Free T4 (0.8-1.6) ng/dl Urine Color Dark Yellow Urine Appearance Clear (Clear) Urine pH 5.0 (4.5-7.5) Ur Specific [place] 1.021 (1.000-1.030) Urine Protein Negative (Negative) Urine Glucose (UA) Negative (Negative) Urine Ketones Trace H (Negative) Urine Blood Negative (Negative) Urine Nitrite Negative (Negative) Urine Bilirubin Negative (Negative) Urine Urobilinogen Negative (Negative) Ur Leukocyte Esterase 1+ H (Negative) Urine WBC (Auto) 10-30 H (0-5) /hpf Urine RBC (Auto) 0-4 (0-4) /hpf U Hyaline Cast (Auto) 1-5 (0-5) /lpf U Epithel Cells (Auto) 0-5 (0-5) /lpf Urine Bacteria (Auto) 2+ H (Negative) SARS-CoV-2, RNA, NAAT NEGATIVE (NEGATIVE) 09/06/21 09/06/21 09/06/21 Range/Units 00:19 07:44 07:44 WBC (4.8-10.8) K/uL RBC 4.11 L (4.2-5.4) M/uL Hgb (12.0-16.0) g/dL Hct (37-47) % MCV 82.7 (80-100) fL MCH 27.5 (25-34) pg MCHC 33.2 (32-36) g/dL RDW Std Deviation 44.9 (36.4-46.3) fL RDW Coeff of Sindhu 14.8 H (11.5-14.5) % Plt Count (130-400) K/uL MPV 8.1 (7.4-10.4) fL Immature Gran % (Auto) 0.1 % Neut % (Auto) 65.1 % Lymph % (Auto) 21.6 % Stewart % (Auto) 11.1 % Eos % (Auto) 1.8 % Baso % (Auto) 0.3 % Neut # (Auto) 4.64 (1.4-6.5) K/uL Lymph # (Auto) 1.54 (1.2-3.4) K/uL Stewart # (Auto) 0.79 H (0.11-0.59) K/uL Eos # (Auto) 0.13 (0-0.5) K/uL Baso # (Auto) 0.02 (0-0.2) K/uL Immature Gran # (Auto) 0.01 (0.00-0.02) K/uL APTT (21.0-31.0) Seconds PTT Ratio ABG pH (7.35-7.45) ABG pCO2 (35-46) mmHg ABG pO2 (80-95) mmHg ABG HCO3 (19-24) mmol/L ABG O2 Saturation (90-95) % ABG Base Excess (-9-1.8) mEq/L Ross Test (Pos) Barometric Pressure mm/Hg Oxygen Given Sodium 143 D (136-145) mmol/L Potassium 3.9 D (3.5-5.1) mmol/L Chloride 115 H (98-107) mmol/L Carbon Dioxide 20 L (21-32) mmol/L Anion Gap 8.0 (3-11) BUN 15 (7-18) mg/dl Creatinine 0.86 D (0.6-1.2) mg/dl Est Cr Clr Drug Dosing 39.5 ml/min Est GFR ( Amer) 73.9 ml/min Est GFR (Non-Af Amer) 63.8 ml/min BUN/Creatinine Ratio 17.9 (10-20) Glucose 88 (70-99) mg/dl POC Glucose (70-99) mg/dl Lactate (0.4-2.0) mmol/L Calcium 8.2 L (8.5-10.1) mg/dl Phosphorus (2.5-4.9) mg/dl Magnesium (1.8-2.4) mg/dl Total Bilirubin 0.5 (0.2-1) mg/dl AST 26 (15-37) U/L ALT 14 (12-78) U/L Alkaline Phosphatase 97 (45-117) U/L Ammonia (11-32) umol/L Total Creatine Kinase 509 H (26-192) U/L Troponin I 0.117 H* (0-0.045) ng/ml Total Protein 6.5 (6.4-8.2) gm/dl Albumin 2.2 L (3.4-5.0) gm/dl Globulin 4.3 H (2.5-4.0) gm/dl Albumin/Globulin Ratio 0.5 L (0.9-2) Lipase (73-393) U/L Vitamin B12 (193-986) pg/ml TSH (0.300-4.500) uIu/ml Free T4 (0.8-1.6) ng/dl Urine Color Urine Appearance (Clear) Urine pH (4.5-7.5) Ur Specific [place] (1.000-1.030) Urine Protein (Negative) Urine Glucose (UA) (Negative) Urine Ketones (Negative) Urine Blood (Negative) Urine Nitrite (Negative) Urine Bilirubin (Negative) Urine Urobilinogen (Negative) Ur Leukocyte Esterase (Negative) Urine WBC (Auto) (0-5) /hpf Urine RBC (Auto) (0-4) /hpf U Hyaline Cast (Auto) (0-5) /lpf U Epithel Cells (Auto) (0-5) /lpf Urine Bacteria (Auto) (Negative) SARS-CoV-2, RNA, NAAT (NEGATIVE) 09/07/21 09/07/21 09/07/21 Range/Units 04:58 04:58 04:58 WBC (4.8-10.8) K/uL RBC 4.13 L (4.2-5.4) M/uL Hgb (12.0-16.0) g/dL Hct (37-47) % MCV 82.6 (80-100) fL MCH 27.4 (25-34) pg MCHC 33.1 (32-36) g/dL RDW Std Deviation 43.8 (36.4-46.3) fL RDW Coeff of Sindhu 14.6 H (11.5-14.5) % Plt Count (130-400) K/uL MPV 8.3 (7.4-10.4) fL Immature Gran % (Auto) % Neut % (Auto) % Lymph % (Auto) % Stewart % (Auto) % Eos % (Auto) % Baso % (Auto) % Neut # (Auto) (1.4-6.5) K/uL Lymph # (Auto) (1.2-3.4) K/uL Stewart # (Auto) (0.11-0.59) K/uL Eos # (Auto) (0-0.5) K/uL Baso # (Auto) (0-0.2) K/uL Immature Gran # (Auto) (0.00-0.02) K/uL APTT (21.0-31.0) Seconds PTT Ratio ABG pH (7.35-7.45) ABG pCO2 (35-46) mmHg ABG pO2 (80-95) mmHg ABG HCO3 (19-24) mmol/L ABG O2 Saturation (90-95) % ABG Base Excess (-9-1.8) mEq/L Ross Test (Pos) Barometric Pressure mm/Hg Oxygen Given Sodium 139 (136-145) mmol/L Potassium 3.8 (3.5-5.1) mmol/L Chloride 112 H (98-107) mmol/L Carbon Dioxide 18 L (21-32) mmol/L Anion Gap 9.0 (3-11) BUN 13 (7-18) mg/dl Creatinine 0.86 (0.6-1.2) mg/dl Est Cr Clr Drug Dosing 39.5 ml/min Est GFR ( Amer) 73.9 ml/min Est GFR (Non-Af Amer) 63.8 ml/min BUN/Creatinine Ratio 14.9 (10-20) Glucose 73 (70-99) mg/dl POC Glucose (70-99) mg/dl Lactate (0.4-2.0) mmol/L Calcium 8.6 (8.5-10.1) mg/dl Phosphorus 2.6 (2.5-4.9) mg/dl Magnesium 2.1 (1.8-2.4) mg/dl Total Bilirubin (0.2-1) mg/dl AST (15-37) U/L ALT (12-78) U/L Alkaline Phosphatase (45-117) U/L Ammonia (11-32) umol/L Total Creatine Kinase 536 H (26-192) U/L Troponin I (0-0.045) ng/ml Total Protein (6.4-8.2) gm/dl Albumin (3.4-5.0) gm/dl Globulin (2.5-4.0) gm/dl Albumin/Globulin Ratio (0.9-2) Lipase (73-393) U/L Vitamin B12 459 (193-986) pg/ml TSH (0.300-4.500) uIu/ml Free T4 (0.8-1.6) ng/dl Urine Color Urine Appearance (Clear) Urine pH (4.5-7.5) Ur Specific [place] (1.000-1.030) Urine Protein (Negative) Urine Glucose (UA) (Negative) Urine Ketones (Negative) Urine Blood (Negative) Urine Nitrite (Negative) Urine Bilirubin (Negative) Urine Urobilinogen (Negative) Ur Leukocyte Esterase (Negative) Urine WBC (Auto) (0-5) /hpf Urine RBC (Auto) (0-4) /hpf U Hyaline Cast (Auto) (0-5) /lpf U Epithel Cells (Auto) (0-5) /lpf Urine Bacteria (Auto) (Negative) SARS-CoV-2, RNA, NAAT (NEGATIVE) 09/08/21 09/08/21 09/08/21 Range/Units 07:33 07:33 09:38 WBC 7.16 (4.8-10.8) K/uL RBC 4.21 (4.2-5.4) M/uL Hgb 11.7 L (12.0-16.0) g/dL Hct 35.3 L (37-47) % MCV 83.8 (80-100) fL MCH 27.8 (25-34) pg MCHC 33.1 (32-36) g/dL RDW Std Deviation 45.4 (36.4-46.3) fL RDW Coeff of Sindhu 14.7 H (11.5-14.5) % Plt Count 199 (130-400) K/uL MPV 8.2 (7.4-10.4) fL Immature Gran % (Auto) % Neut % (Auto) % Lymph % (Auto) % Stewart % (Auto) % Eos % (Auto) % Baso % (Auto) % Neut # (Auto) (1.4-6.5) K/uL Lymph # (Auto) (1.2-3.4) K/uL Stewart # (Auto) (0.11-0.59) K/uL Eos # (Auto) (0-0.5) K/uL Baso # (Auto) (0-0.2) K/uL Immature Gran # (Auto) (0.00-0.02) K/uL APTT (21.0-31.0) Seconds PTT Ratio ABG pH (7.35-7.45) ABG pCO2 (35-46) mmHg ABG pO2 (80-95) mmHg ABG HCO3 (19-24) mmol/L ABG O2 Saturation (90-95) % ABG Base Excess (-9-1.8) mEq/L Ross Test (Pos) Barometric Pressure mm/Hg Oxygen Given Sodium 142 (136-145) mmol/L Potassium 4.3 (3.5-5.1) mmol/L Chloride 114 H (98-107) mmol/L Carbon Dioxide 12 L (21-32) mmol/L Anion Gap 16.0 H (3-11) BUN 14 (7-18) mg/dl Creatinine 0.92 (0.6-1.2) mg/dl Est Cr Clr Drug Dosing 37.0 ml/min Est GFR ( Amer) 68.2 ml/min Est GFR (Non-Af Amer) 58.8 ml/min BUN/Creatinine Ratio 14.7 (10-20) Glucose 52 L* (70-99) mg/dl POC Glucose 75 (70-99) mg/dl Lactate (0.4-2.0) mmol/L Calcium 8.7 (8.5-10.1) mg/dl Phosphorus 3.4 (2.5-4.9) mg/dl Magnesium 2.1 (1.8-2.4) mg/dl Total Bilirubin (0.2-1) mg/dl AST (15-37) U/L ALT (12-78) U/L Alkaline Phosphatase (45-117) U/L Ammonia (11-32) umol/L Total Creatine Kinase 236 H (26-192) U/L Troponin I (0-0.045) ng/ml Total Protein (6.4-8.2) gm/dl Albumin (3.4-5.0) gm/dl Globulin (2.5-4.0) gm/dl Albumin/Globulin Ratio (0.9-2) Lipase (73-393) U/L Vitamin B12 (193-986) pg/ml TSH (0.300-4.500) uIu/ml Free T4 (0.8-1.6) ng/dl Urine Color Urine Appearance (Clear) Urine pH (4.5-7.5) Ur Specific [place] (1.000-1.030) Urine Protein (Negative) Urine Glucose (UA) (Negative) Urine Ketones (Negative) Urine Blood (Negative) Urine Nitrite (Negative) Urine Bilirubin (Negative) Urine Urobilinogen (Negative) Ur Leukocyte Esterase (Negative) Urine WBC (Auto) (0-5) /hpf Urine RBC (Auto) (0-4) /hpf U Hyaline Cast (Auto) (0-5) /lpf U Epithel Cells (Auto) (0-5) /lpf Urine Bacteria (Auto) (Negative) SARS-CoV-2, RNA, NAAT (NEGATIVE) 09/08/21 09/08/21 09/08/21 Range/Units 10:50 10:50 10:50 WBC (4.8-10.8) K/uL RBC (4.2-5.4) M/uL Hgb (12.0-16.0) g/dL Hct (37-47) % MCV (80-100) fL MCH (25-34) pg MCHC (32-36) g/dL RDW Std Deviation (36.4-46.3) fL RDW Coeff of Sindhu (11.5-14.5) % Plt Count (130-400) K/uL MPV (7.4-10.4) fL Immature Gran % (Auto) % Neut % (Auto) % Lymph % (Auto) % Stewart % (Auto) % Eos % (Auto) % Baso % (Auto) % Neut # (Auto) (1.4-6.5) K/uL Lymph # (Auto) (1.2-3.4) K/uL Stewart # (Auto) (0.11-0.59) K/uL Eos # (Auto) (0-0.5) K/uL Baso # (Auto) (0-0.2) K/uL Immature Gran # (Auto) (0.00-0.02) K/uL APTT (21.0-31.0) Seconds PTT Ratio ABG pH 7.38 (7.35-7.45) ABG pCO2 24 L (35-46) mmHg ABG pO2 99 H (80-95) mmHg ABG HCO3 14 L (19-24) mmol/L ABG O2 Saturation 98.0 H (90-95) % ABG Base Excess -9.9 L (-9-1.8) mEq/L Ross Test Pos (Pos) Barometric Pressure 727.6 mm/Hg Oxygen Given ROOM AIR Sodium 142 (136-145) mmol/L Potassium 4.6 (3.5-5.1) mmol/L Chloride 116 H (98-107) mmol/L Carbon Dioxide 11 L (21-32) mmol/L Anion Gap 15.0 H (3-11) BUN 14 (7-18) mg/dl Creatinine 0.99 (0.6-1.2) mg/dl Est Cr Clr Drug Dosing 34.3 ml/min Est GFR ( Amer) 62.4 ml/min Est GFR (Non-Af Amer) 53.8 ml/min BUN/Creatinine Ratio 14.1 (10-20) Glucose 79 (70-99) mg/dl POC Glucose (70-99) mg/dl Lactate 0.8 (0.4-2.0) mmol/L Calcium 8.7 (8.5-10.1) mg/dl Phosphorus (2.5-4.9) mg/dl Magnesium (1.8-2.4) mg/dl Total Bilirubin (0.2-1) mg/dl AST (15-37) U/L ALT (12-78) U/L Alkaline Phosphatase (45-117) U/L Ammonia (11-32) umol/L Total Creatine Kinase (26-192) U/L Troponin I (0-0.045) ng/ml Total Protein (6.4-8.2) gm/dl Albumin (3.4-5.0) gm/dl Globulin (2.5-4.0) gm/dl Albumin/Globulin Ratio (0.9-2) Lipase 290 (73-393) U/L Vitamin B12 (193-986) pg/ml TSH (0.300-4.500) uIu/ml Free T4 (0.8-1.6) ng/dl Urine Color Urine Appearance (Clear) Urine pH (4.5-7.5) Ur Specific [place] (1.000-1.030) Urine Protein (Negative) Urine Glucose (UA) (Negative) Urine Ketones (Negative) Urine Blood (Negative) Urine Nitrite (Negative) Urine Bilirubin (Negative) Urine Urobilinogen (Negative) Ur Leukocyte Esterase (Negative) Urine WBC (Auto) (0-5) /hpf Urine RBC (Auto) (0-4) /hpf U Hyaline Cast (Auto) (0-5) /lpf U Epithel Cells (Auto) (0-5) /lpf Urine Bacteria (Auto) (Negative) SARS-CoV-2, RNA, NAAT (NEGATIVE) BMP 09/08/21 09/08/21 07:33 10:50 Sodium 142 142 Potassium 4.3 4.6 Chloride 114 H 116 H Carbon Dioxide 12 L 11 L BUN 14 14 Creatinine 0.92 0.99 Glucose 52 L* 79 Calcium 8.7 8.7 Cardiac Enzymes 09/08/21 Range/Units 07:33 Total Creatine Kinase 236 H (26-192) U/L Medications Administered Current Inpatient Medications Acetaminophen (Acetaminophen 325 Mg Tab) 650 mg PO Q4H PRN PRN Reason: Pain or Fever Stop: 10/05/21 22:46 Albuterol (Albut/Ipratrop 3mg/0.5mg Neb 3 Ml Vial) 3 ml INH QID PRN PRN Reason: Shortness Of Breath Stop: 10/05/21 22:46 Clopidogrel Bisulfate (Clopidogrel Bisulfate 75 Mg Tab) 75 mg PO DAILY ORIN Stop: 10/06/21 08:59 Last Admin: 09/08/21 09:23 Dose: 75 mg Documented by: Fluticasone Propionate (Fluticasone Propionate Na Spr 16 Gm Btl) 2 sprays NA DAILY ORIN Stop: 10/06/21 08:59 Last Admin: 09/08/21 09:23 Dose: 2 sprays Documented by: Fluticasone/Vilanterol (Fluticasone/Vilanterol 100/25mcg 14 Puffs/Inhaler) 1 puffs INH DAILY ORIN Stop: 10/06/21 08:59 Last Admin: 09/08/21 10:38 Dose: Not Given Documented by: Heparin Sodium (Porcine) (Heparin Sod 5,000 Unit/0.5 Ml Vial) 5,000 units SQ Q8H ORIN Stop: 10/06/21 00:00 Last Admin: 09/08/21 09:21 Dose: 5,000 units Documented by: Promethazine HCl 6.25 mg/ (Sodium Chloride) 50.25 mls @ 201 mls/hr IV Q6H PRN PRN Reason: Nausea And Vomiting Stop: 10/05/21 22:46 Sodium Bicarbonate 150 meq/ (Dextrose) 1,150 mls @ 80 mls/hr IV .[id number] ORIN Stop: 09/09/21 03:22 Levothyroxine Sodium (Levothyroxine Sodium 75 Mcg Tablet) 75 mcg PO DAILYBB ORIN Stop: 10/06/21 06:29 Last Admin: 09/08/21 06:02 Dose: Not Given Documented by: Lisinopril (Lisinopril 5 Mg Tab) 5 mg PO DAILY ORIN Stop: 10/06/21 08:59 Last Admin: 09/08/21 09:21 Dose: 5 mg Documented by: Propranolol HCl (Propranolol Hcl 60 Mg La Cap) 60 mg PO DAILY ORIN Stop: 10/06/21 08:59 Last Admin: 09/08/21 09:22 Dose: 60 mg Documented by: Risperidone (Risperidone 0.5 Mg Tablet) 0.25 mg PO HS ORIN Stop: 10/05/21 22:46 Last Admin: 09/07/21 21:35 Dose: Not Given Documented by: Roflumilast (Roflumilast 500 Mcg Tab) 500 mcg PO DAILY ORIN Stop: 10/06/21 08:59 Last Admin: 09/08/21 09:22 Dose: 500 mcg Documented by: Travoprost (Travoprost Z 0.004% Oph Soln 2.5 Ml Btl) 1 drops OPB HS ORIN Stop: 10/05/21 22:46 Last Admin: 09/07/21 21:35 Dose: Not Given Documented by:
[2021-09-08] MEDS ORDERED: AMOXICILLIN SUSP 500 MG/10 ML UDP PO SCH (14:15)
[2021-09-08] MEDS: AMOXICILLIN SUSP 500 MG/10 ML UDP PO SCH ×2 (15:54→22:48)
[2021-09-08] MEDS: TRAVOPROST Z 0.004% OPH SOLN 2.5 ML BTL OPB SCH (20:11)
[2021-09-08] MEDS: risperiDONE 0.5 MG TABLET PO SCH ×2 (20:11→22:52)
--- NOTE | 2021-09-08 20:47 | Nephrology Consultation ---
Date of Consultation September 08, 2021 Assessment & Plan (1) Hyperchloremic metabolic acidosis: may be due in part to resuscitation w/ NS; also has AG metabolic acidosis wihch may well be from starvation ketosis agree w/ bicarb gtt recheck urine dipstick for ketones no indication for emergent dialysis (2) CKD (chronic kidney disease), stage III: baseline 1.0; monitor status History of Present Illness Reason for Consultation: possible emerging metabolic acidosis Requesting Physician: Dr Gates Attending Physician: Jasmyne Gates, DO History of Present Illness 80 y/o F whom I"m asked to see for KRISTOPHER was admitted to evaluate for rhabdomyolysis after being found down on the floor at home.. PMH includes dementia, HTN, PAD, copd. hyperchloremia emerged on 09/06; C02 dropped steadily since admission to 11 today. Her presenting CK was 1065 on 09/05, downtrending to 236 today. no reports of diarrhea Allergies Allergy/AdvReac Type Severity Reaction Status Date / Time nitrofurantoin Allergy Unknown ON [facility] MED Verified 09/05/21 19:41 LIST Sulfa (Sulfonamide AdvReac Intermediate STOMACH Verified 09/05/21 19:41 Antibiotics) UPSET Home Medications Medication Instructions Recorded Confirmed Type atorvastatin 10 mg tablet 10 mg PO HS 06/14/18 09/05/21 History clopidogrel 75 mg tablet 75 mg PO DAILY 06/14/18 09/05/21 History levothyroxine 75 mcg tablet 75 mcg PO DAILYBB 06/14/18 09/05/21 History lisinopril 5 mg tablet 5 mg PO DAILY 06/14/18 09/05/21 History albuterol sulfate 90 mcg/actuation 2 puff INHALATION Q4H PRN #8 gm 05/25/19 09/05/21 Rx aerosol inhaler (Ventolin HFA) travoprost 0.004 % eye drops 1 drp OPB HS ml 05/25/19 09/05/21 History budesonide-formoterol HFA 80 2 puff INH BID #10.2 gm 12/05/20 09/05/21 Rx mcg-4.5 mcg/actuation aerosol inhaler (Symbicort) roflumilast 500 mcg tablet 500 mcg PO DAILY #30 tab 04/11/21 09/05/21 Rx fluticasone propionate 50 2 spray INTRANASAL DAILY 09/05/21 09/05/21 History mcg/actuation nasal spray,suspension ipratropium 0.5 mg-albuterol 3 mg 3 ml INHALATION QID PRN 09/05/21 09/05/21 History (2.5 mg base)/3 mL nebulization soln mirtazapine 30 mg tablet 30 mg PO HS 09/05/21 09/05/21 History ondansetron HCl 4 mg tablet 4 mg PO Q8H PRN 09/05/21 09/05/21 History (Zofran) propranolol 60 mg capsule,24 60 mg PO DAILY 09/05/21 09/05/21 History hr,extended release risperidone 0.25 mg tablet 0.25 mg PO HS 09/05/21 09/05/21 History Patient History Medical History CKD (chronic kidney disease), stage III Dementia Fracture of triquetrum of right wrist Full code status Gastroenteritis History of arthritis History of seborrheic keratosis Hypothyroidism PAD (peripheral artery disease) Right patella fracture Right shoulder injury 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) "Development of a skin lesion of the left upper arm Status post biopsy April 25, 2018 Moderately differentiated squamous cell carcinoma, completely excised Perineural invasion" Underweight Social History Smoking Status: Former smoker Preferred Language: Fijian Communication Ability: Impaired Histologist Technologist Required: No Beliefs That Will Affect Care: None marital status: Current Living Situation: Spouse How many Children do You have: 2 Other Information That Helps Us Care for You: No Feels Safe at Home: Yes Assistive Devices: None Review of Systems Review of Systems: Unobtainable due to cognitive status Physical Exam 2 Constitutional: well developed and + thin Eyes: EOM intact bilaterally ENMT: Ears: no external ear abnormality Nose: no external nose abnormality Mouth: + dry oral mucous membranes Neck: no nuchal rigidity Respiratory: normal respiratory effort Auscultation: + diminished lung sounds and + crackles Cardiovascular: Rate/Rhythm: regular rate and regular rhythm Heart Sounds: normal S1 and normal S2 Extremities: no edema Gastrointestinal (Abdomen): Inspection/Auscultation: normal bowel sounds Percussion/Palpation: abdomen soft; abdomen nontender Musculoskeletal: Extremities: strength 5/5 throughout Skin: no rashes, warm and dry Neurologic: swanson, fluent speech, no tremor Results & Data ([facility]) Vital Signs (Past 12 Hours) Vital Signs Temp Pulse Pulse Resp BP BP Pulse Ox 09/08/21 20:09 36.4 C L 75 16 113/61 97 09/08/21 16:36 35.8 C L 82 16 120/60 98 09/08/21 16:21 67 09/08/21 11:00 36.6 C 75 16 125/58 L 93 09/08/21 09:20 88 126/62 Laboratory Results 09/08/21 07:33 09/08/21 10:50 Diagnostic Findings cxr 09/05 1. Cardiomegaly with nonspecific interstitial coarsening. 2. Small pleural effusions with bibasilar consolidative opacities suggestive of atelectasis versus pneumonitis. 3. Emphysema.
[2021-09-09] MEDS: HEPARIN SOD 5,000 UNIT/0.5 ML VIAL SQ SCH ×4 (00:03→23:31)
[2021-09-09 01:17] LABS: Appearance Urine Turbid (Clear); Bacteria Urine Automated 4+ (Negative); Bilirubin Urine Negative (Negative); Blood Urine Trace (Negative); Color Urine Yellow; Epithelial Cell Urine Auto >30 /lpf (0-5); Glucose Urine UA Negative (Negative); Ketones Urine 4+ (Negative); Leukocyte Esterase Urine 2+ (Negative); Nitrite Urine Negative (Negative); Protein Urine 1+ (Negative); Specific Gravity Urine 1.025 (1.000-1.030); Urobilinogen Urine Negative (Negative); WBC Urine Automated >30 /hpf (0-5); pH Urine 5.5 (4.5-7.5)
[2021-09-09] MEDS: LEVOTHYROXINE SODIUM 75 MCG TABLET PO SCH (06:08)
[2021-09-09 06:56] LABS: Hemoglobin 10.4 g/dL (12.0-16.0); Mean Corpuscular Hemoglobin 27.3 pg (25-34); Mean Corpuscular Hgb Conc 33.5 g/dL (32-36); Mean Corpuscular Volume 81.4 fL (80-100); Mean Platelet Volume 8.2 fL (7.4-10.4); Platelet Count 182 K/uL (130-400); RDW Coefficient of Variation 14.6 % (11.5-14.5); RDW Standard Deviation 43.4 fL (36.4-46.3); Red Blood Count 3.81 M/uL (4.2-5.4); White Blood Count 6.01 K/uL (4.8-10.8)
[2021-09-09 07:31] LABS: BUN Creatinine Ratio 13.7 (10-20); Creatinine Clr Calc Pharmacy 41.7 ml/min; Est GFR (African American) 87.3 ml/min; Est GFR (Non-African American) 75.3 ml/min; Magnesium 1.7 mg/dl (1.8-2.4); Potassium 3.3 mmol/L (3.5-5.1)
[2021-09-09 07:44] LABS: Phosphorus 2.1 mg/dl (2.5-4.9)
[2021-09-09] MEDS: AMOXICILLIN SUSP 500 MG/10 ML UDP PO SCH ×3 (09:13→23:28)
[2021-09-09] MEDS: FLUTICASONE PROPIONATE NA SPR 16 GM BTL SCH (09:14)
[2021-09-09] MEDS: PROPRANOLOL HCL 60 MG LA CAP PO SCH (09:15)
[2021-09-09] MEDS: lisinopril 5 MG TAB PO SCH (09:16)
[2021-09-09] MEDS: ROFLUMILAST 500 MCG TAB PO SCH (09:16)
[2021-09-09] MEDS: FLUTICASONE/VILANTEROL 100/25MCG 14 PUFFS/INHALER INH SCH ×2 (09:16→09:24)
[2021-09-09] MEDS: CLOPIDOGREL BISULFATE 75 MG TAB PO SCH (10:10)
--- NOTE | 2021-09-09 14:08 | Nephrology Progress Note ---
Date of Service September 09, 2021 Assessment & Plan (1) Hyperchloremic metabolic acidosis: Plan: may be due in part to resuscitation w/ NS; also has AG metabolic acidosis likely from starvation ketosis as evidenced by UA/clinical setting/ chemistries >> resolved w/ D5W and bicarbonate. unfortunately expect these issues to recur now that she is off of bicarbonate since disease processes driving her decreased po intake (dementia) not reversible, though may get some improvement by treating uti if present. Did talk to son yesterday about stages of dementia and how w/ this advanced stage often can't improve chemistries for long; he was familiar with/accepting of this. -completed one L bicarb; K should improve off of gtt now which she is -f/u pending urine cxs; on amoxicillin for now Will sign off; no renal f/u needed; pls call if ? (2) CKD (chronic kidney disease), stage III: Plan: baseline 1.0; monitor status - better than baseline currently Admission and Anticipated Discharge Date Admission Date: September 05, 2021 Subjective aides tell me pt refused to eat, refused being fed; wouldn't take more than 1-2 bites even if aide sat w/ her and also ate; pt denies pain or sob but ROS from her is not useful. pt tells me she's eating well. Review of Systems Review of Systems: Unobtainable due to cognitive status Physical Exam Constitutional: well developed and + thin Eyes: EOM intact bilaterally ENMT: Ears: no external ear abnormality Nose: no external nose abnormality Mouth: + dry oral mucous membranes Neck: no nuchal rigidity Respiratory: normal respiratory effort Auscultation: + diminished lung sounds Cardiovascular: Rate/Rhythm: regular rate and regular rhythm Heart Sounds: normal S1 and normal S2 Extremities: no edema Gastrointestinal (Abdomen): Inspection/Auscultation: normal bowel sounds Percussion/Palpation: abdomen soft; abdomen nontender Musculoskeletal: generalized weakness Skin: no rashes, warm and dry Neurologic: swanson, fluent speech, no tremor Results & Data ([facility]) Vital Signs (Past 12 Hours) Vital Signs Temp Pulse Resp BP Pulse Ox 09/09/21 11:19 36.5 C 62 18 118/61 94 09/09/21 08:11 36.7 C 65 18 113/67 97 09/09/21 06:59 36.5 C 62 18 109/51 L 97 09/09/21 03:58 36.9 C 79 18 129/67 95 Laboratory Results 09/09/21 06:13 09/09/21 06:13 UA 4+ ketones; also blood, protein, bacteria, WBC; urine cx pending
[2021-09-09] MEDS: TRAVOPROST Z 0.004% OPH SOLN 2.5 ML BTL OPB SCH (20:48)
[2021-09-09] MEDS: risperiDONE 0.5 MG TABLET PO SCH (20:49)
--- NOTE | 2021-09-10 05:35 | Hospitalist Progress Note ---
Date of Service September 09, 2021 Assessment & Plan (1) Rhabdomyolysis: Plan: Improved CK and renal function after fluid resuscitation. Stopped IVF now. Resolved (2) Acute metabolic encephalopathy: Plan: Underlying dementia but appears more confused than her described baseline at home per notes. Likely related to underlying infection, hospitalization and possibly electrolyte issue. Cont plans to correct these issues and reorient as needed. (3) Hyperchloremic metabolic acidosis: Plan: Likely from recent continuous infusion of NSS in setting of rhabdomyolisis, and also poss. starvation ketosis (given poor oral intake). Stopped IV NS and started bicarb drip. Bicarb drip now stopped. Consulted Nephrology for recommendations. Resolved. (4) UTI (urinary tract infection): Plan: Alpha strep grew in culture. Delgadillo still in place. Repeated UA given recent history of at least two rounds of antibiotics to treat UTI as outpatient prior to admission, and confusion which may be explained by persistent underlying infection. Started Amoxicillin course now and would complete the course pending any new bacterial growth in new culture. (5) Elevated troponin: Plan: - likely secondary to above (rhabdo) - troponin peaked at 0.3 and trended down - No reported chest pain - Echo could be considered, however, she currently would not be compliant with that study. (6) Dementia: Plan: h/o dementia with caregivers at home, now with insults from UTI and rhabdo as well as hospitalization. High risk for delirium which is likely going on intermittently. Not currently combative. Cont reorienting and treat underlying issues. (7) Hypoglycemia: Plan: Poor PO intake. Nutrition consult ordered to monitor caloric intake. Diet was liberalized. (8) Hypothyroidism: Plan: Cont Synthroid per home regimen. (9) PAD (peripheral artery disease): Plan: chronic, per records. Cont medical management with plavix, lisinopril, BB - statin on hold in setting of rhabdo. (10) CKD (chronic kidney disease), stage III: Plan: at her baseline. Poor PO intake contributing to overall poor urine output. Delgadillo to track accurate I/Os. (11) Pulmonary nodule/lesion, solitary: Plan: followup as outpatient. (12) Pulmonary fibrosis: Plan: Oxygenating well on room air and no current respiratory symptoms. (13) DVT prophylaxis: Plan: Heparin Full code Dispo-cont telemetry. Plan for [facility] at discharge, likely after the wee kend. Admission and Anticipated Discharge Date Admission Date: September 05, 2021 Subjective 80 yo F with h/o dementia brought in by family after being found on the floor and confused. Currently being treated for UTI and rhabdo. Currently she is lying in bed, in no acute distress She does not answer all questions appropriately She is more cooperative today,allows physical exam without any complaints Denies any chest pain, shortness of breath, headache, abdominal pain Asking about going home. She cannot answer any orientation questions appropriately. Bicarb used,pt seen by nephrology for AGMA (likely fromin part to resuscitation w/ NS and starvation ketosis) Review of Systems Review of Systems: All systems reviewed & are unremarkable except as noted in Subjective Physical Exam Physical Exam: GENERAL: Elderly thin female, awake, in no acute distress HEENT: NC/AT. EOMI, PERRL. NECK : Supple, no tenderness CHEST : CTAB HEART : RRR, no obvious murmurs ABDOMEN: no distention, nontender, + bowel sounds EXTREMITIES : no LE swelling, moves extremities NEUROLOGIC : Awake and alert however not answering all questions appropriately (hx of dementia). No facial asymmetry, speech fluent. Moves extremities. SKIN: warm, dry Results & Data Results & Data ([facility]) Vital Signs (Past 12 Hours) Vital Signs Temp Pulse Pulse Resp BP Pulse Ox 09/09/21 23:29 36.9 C 61 18 109/53 L 97 09/09/21 19:53 36.8 C 66 18 111/48 L 95 Laboratory Results 09/09/21 09/09/21 Range/Units 06:13 06:13 WBC 6.01 (4.8-10.8) K/uL RBC 3.81 L (4.2-5.4) M/uL Hgb 10.4 L (12.0-16.0) g/dL Hct 31.0 L (37-47) % MCV 81.4 (80-100) fL MCH 27.3 (25-34) pg MCHC 33.5 (32-36) g/dL RDW Std Deviation 43.4 (36.4-46.3) fL RDW Coeff of Sindhu 14.6 H (11.5-14.5) % Plt Count 182 (130-400) K/uL MPV 8.2 (7.4-10.4) fL Sodium 142 (136-145) mmol/L Potassium 3.3 L D (3.5-5.1) mmol/L Chloride 110 H (98-107) mmol/L Carbon Dioxide 22 (21-32) mmol/L Anion Gap 10.0 (3-11) BUN 10 (7-18) mg/dl Creatinine 0.75 (0.6-1.2) mg/dl Est Cr Clr Drug Dosing 41.7 ml/min Est GFR ( Amer) 87.3 ml/min Est GFR (Non-Af Amer) 75.3 ml/min BUN/Creatinine Ratio 13.7 (10-20) Glucose 97 (70-99) mg/dl Calcium 8.0 L (8.5-10.1) mg/dl Phosphorus 2.1 L D (2.5-4.9) mg/dl Magnesium 1.7 L (1.8-2.4) mg/dl Total Creatine Kinase 242 H (26-192) U/L Medications Administered Current Inpatient Medications Acetaminophen (Acetaminophen 325 Mg Tab) 650 mg PO Q4H PRN PRN Reason: Pain or Fever Stop: 10/05/21 22:46 Albuterol (Albut/Ipratrop 3mg/0.5mg Neb 3 Ml Vial) 3 ml INH QID PRN PRN Reason: Shortness Of Breath Stop: 10/05/21 22:46 Amoxicillin (Amoxicillin Susp 500 Mg/10 Ml Udp) 500 mg PO Q8H ORIN Stop: 09/13/21 14:59 Last Admin: 09/09/21 23:28 Dose: 500 mg Documented by: Clopidogrel Bisulfate (Clopidogrel Bisulfate 75 Mg Tab) 75 mg PO DAILY ORIN Stop: 10/06/21 08:59 Last Admin: 09/09/21 10:10 Dose: 75 mg Documented by: Fluticasone Propionate (Fluticasone Propionate Na Spr 16 Gm Btl) 2 sprays NA DAILY ORIN Stop: 10/06/21 08:59 Last Admin: 09/09/21 09:14 Dose: 2 sprays Documented by: Fluticasone/Vilanterol (Fluticasone/Vilanterol 100/25mcg 14 Puffs/Inhaler) 1 puffs INH DAILY ORIN Stop: 10/06/21 08:59 Last Admin: 09/09/21 09:24 Dose: Not Given Documented by: Heparin Sodium (Porcine) (Heparin Sod 5,000 Unit/0.5 Ml Vial) 5,000 units SQ Q8H ORIN Stop: 10/06/21 00:00 Last Admin: 09/09/21 23:31 Dose: Not Given Documented by: Promethazine HCl 6.25 mg/ (Sodium Chloride) 50.25 mls @ 201 mls/hr IV Q6H PRN PRN Reason: Nausea And Vomiting Stop: 10/05/21 22:46 Levothyroxine Sodium (Levothyroxine Sodium 75 Mcg Tablet) 75 mcg PO DAILYBB ORIN Stop: 10/06/21 06:29 Last Admin: 09/09/21 06:08 Dose: Not Given Documented by: Lisinopril (Lisinopril 5 Mg Tab) 5 mg PO DAILY ORIN Stop: 10/06/21 08:59 Last Admin: 09/09/21 09:16 Dose: 5 mg Documented by: Propranolol HCl (Propranolol Hcl 60 Mg La Cap) 60 mg PO DAILY ORIN Stop: 10/06/21 08:59 Last Admin: 09/09/21 09:15 Dose: 60 mg Documented by: Risperidone (Risperidone 0.5 Mg Tablet) 0.25 mg PO HS ORIN Stop: 10/05/21 22:46 Last Admin: 09/09/21 20:49 Dose: 0.25 mg Documented by: Roflumilast (Roflumilast 500 Mcg Tab) 500 mcg PO DAILY ORIN Stop: 10/06/21 08:59 Last Admin: 09/09/21 09:16 Dose: 500 mcg Documented by: Travoprost (Travoprost Z 0.004% Oph Soln 2.5 Ml Btl) 1 drops OPB HS ORIN Stop: 10/05/21 22:46 Last Admin: 09/09/21 20:48 Dose: 1 drops Documented by:
[2021-09-10] MEDS: LEVOTHYROXINE SODIUM 75 MCG TABLET PO SCH (05:46)
[2021-09-10 06:43] LABS: Hematocrit (blood only) 34.7 % (37-47); Hemoglobin 11.7 g/dL (12.0-16.0); Mean Corpuscular Hemoglobin 27.6 pg (25-34); Mean Corpuscular Hgb Conc 33.7 g/dL (32-36); Mean Corpuscular Volume 81.8 fL (80-100); Mean Platelet Volume 8.2 fL (7.4-10.4); Platelet Count 195 K/uL (130-400); RDW Coefficient of Variation 14.7 % (11.5-14.5); RDW Standard Deviation 43.4 fL (36.4-46.3); Red Blood Count 4.24 M/uL (4.2-5.4); White Blood Count 6.34 K/uL (4.8-10.8)
[2021-09-10 07:09] LABS: Calcium 8.3 mg/dl (8.5-10.1); Creatinine Clr Calc Pharmacy 45.7 ml/min; Est GFR (African American) 95.3 ml/min; Est GFR (Non-African American) 82.2 ml/min; Magnesium 1.8 mg/dl (1.8-2.4); Phosphorus 2.4 mg/dl (2.5-4.9); Potassium 3.4 mmol/L (3.5-5.1)
[2021-09-10] MEDS: AMOXICILLIN SUSP 500 MG/10 ML UDP PO SCH ×3 (07:39→23:19)
[2021-09-10] MEDS: HEPARIN SOD 5,000 UNIT/0.5 ML VIAL SQ SCH ×3 (07:39→23:29)
[2021-09-10] MEDS: FLUTICASONE PROPIONATE NA SPR 16 GM BTL SCH (07:47)
[2021-09-10] MEDS: FLUTICASONE/VILANTEROL 100/25MCG 14 PUFFS/INHALER INH SCH (07:47)
[2021-09-10] MEDS: PROPRANOLOL HCL 60 MG LA CAP PO SCH (10:33)
[2021-09-10] MEDS: lisinopril 5 MG TAB PO SCH (10:33)
[2021-09-10] MEDS: CLOPIDOGREL BISULFATE 75 MG TAB PO SCH (10:34)
[2021-09-10] MEDS: ROFLUMILAST 500 MCG TAB PO SCH (10:34)
[2021-09-10] MEDS: POTASSIUM CHLORIDE CRTAB 20 MEQ TABCR PO STA ×2 (15:48→16:07)
--- NOTE | 2021-09-10 15:50 | Hospitalist Progress Note ---
Date of Service September 10, 2021 Assessment & Plan (1) Rhabdomyolysis: Plan: Improved CK and renal function after fluid resuscitation. Stopped IVF now. Resolved (2) Acute metabolic encephalopathy: Plan: Underlying dementia but appears more confused than her described baseline at home per notes. Likely related to underlying infection, hospitalization and possibly electrolyte issue. Cont plans to correct these issues and reorient as needed. (3) Hyperchloremic metabolic acidosis: Plan: Likely from recent continuous infusion of NSS in setting of rhabdomyolisis, and also poss. starvation ketosis (given poor oral intake). Stopped IV NS and started bicarb drip. Bicarb drip now stopped. Consulted Nephrology for recommendations. Resolved. (4) UTI (urinary tract infection): Plan: Alpha strep grew in culture. Delgadillo still in place. Repeated UA given recent history of at least two rounds of antibiotics to treat UTI as outpatient prior to admission, and confusion which may be explained by persistent underlying infection. Started Amoxicillin course now and would complete the course pending any new bacterial growth in new culture. (5) Elevated troponin: Plan: - likely secondary to above (rhabdo) - troponin peaked at 0.3 and trended down - No reported chest pain - Echo could be considered, however, she currently would not be compliant with that study. (6) Dementia: Plan: h/o dementia with caregivers at home, now with insults from UTI and rhabdo as well as hospitalization. High risk for delirium which is likely going on intermittently. Not currently combative. Cont reorienting and treat underlying issues. (7) Hypoglycemia: Plan: Poor PO intake. Nutrition consult ordered to monitor caloric intake. Diet was liberalized. (8) Hypothyroidism: Plan: Cont Synthroid per home regimen. (9) PAD (peripheral artery disease): Plan: chronic, per records. Cont medical management with plavix, lisinopril, BB - statin on hold in setting of rhabdo. (10) CKD (chronic kidney disease), stage III: Plan: at her baseline. Poor PO intake contributing to overall poor urine output. Delgadillo to track accurate I/Os. (11) Pulmonary nodule/lesion, solitary: Plan: followup as outpatient. (12) Pulmonary fibrosis: Plan: Oxygenating well on room air and no current respiratory symptoms. (13) DVT prophylaxis: Plan: Heparin Full code Dispo-cont telemetry. Plan for [facility] at discharge, likely after the wee kend. Admission and Anticipated Discharge Date Admission Date: September 05, 2021 Subjective 80 yo F with h/o dementia brought in by family after being found on the floor and confused. Currently being treated for UTI and rhabdo. Currently she is lying in bed, in no acute distress She does not answer all questions appropriately She cannot answer any orientation questions appropriately. She is more cooperative,allows physical exam without any complaints Denies any chest pain, shortness of breath, headache, abdominal pain Review of Systems Review of Systems: All systems reviewed & are unremarkable except as noted in Subjective Physical Exam Physical Exam: GENERAL: Elderly thin female, awake, in no acute distress HEENT: NC/AT. EOMI, PERRL. NECK : Supple, no tenderness CHEST : CTAB HEART : RRR, no obvious murmurs ABDOMEN: no distention, nontender, + bowel sounds EXTREMITIES : no LE swelling, moves extremities NEUROLOGIC : Awake and alert however not answering all questions appropriately (hx of dementia). No facial asymmetry, speech fluent. Moves extremities. SKIN: warm, dry Results & Data Results & Data ([facility]) Vital Signs (Past 12 Hours) Vital Signs Temp Pulse Pulse Resp BP Pulse Ox 09/10/21 12:21 60 18 130/56 L 95 09/10/21 08:08 36.0 C L 71 18 151/65 H 95 09/10/21 06:23 83 09/10/21 04:08 36.7 C 66 18 137/53 L 97 Laboratory Results 09/10/21 09/10/21 Range/Units 05:45 05:45 WBC 6.34 (4.8-10.8) K/uL RBC 4.24 (4.2-5.4) M/uL Hgb 11.7 L (12.0-16.0) g/dL Hct 34.7 L (37-47) % MCV 81.8 (80-100) fL MCH 27.6 (25-34) pg MCHC 33.7 (32-36) g/dL RDW Std Deviation 43.4 (36.4-46.3) fL RDW Coeff of Sindhu 14.7 H (11.5-14.5) % Plt Count 195 (130-400) K/uL MPV 8.2 (7.4-10.4) fL Sodium 144 (136-145) mmol/L Potassium 3.4 L (3.5-5.1) mmol/L Chloride 111 H (98-107) mmol/L Carbon Dioxide 23 (21-32) mmol/L Anion Gap 10.0 (3-11) BUN 11 (7-18) mg/dl Creatinine 0.69 (0.6-1.2) mg/dl Est Cr Clr Drug Dosing 45.7 ml/min Est GFR ( Amer) 95.3 ml/min Est GFR (Non-Af Amer) 82.2 ml/min BUN/Creatinine Ratio 16.0 (10-20) Glucose 92 (70-99) mg/dl Calcium 8.3 L (8.5-10.1) mg/dl Phosphorus 2.4 L (2.5-4.9) mg/dl Magnesium 1.8 (1.8-2.4) mg/dl Medications Administered Current Inpatient Medications Acetaminophen (Acetaminophen 325 Mg Tab) 650 mg PO Q4H PRN PRN Reason: Pain or Fever Stop: 10/05/21 22:46 Albuterol (Albut/Ipratrop 3mg/0.5mg Neb 3 Ml Vial) 3 ml INH QID PRN PRN Reason: Shortness Of Breath Stop: 10/05/21 22:46 Amoxicillin (Amoxicillin Susp 500 Mg/10 Ml Udp) 500 mg PO Q8H ORIN Stop: 09/13/21 14:59 Last Admin: 09/10/21 15:48 Dose: 500 mg Documented by: Clopidogrel Bisulfate (Clopidogrel Bisulfate 75 Mg Tab) 75 mg PO DAILY ORIN Stop: 10/06/21 08:59 Last Admin: 09/10/21 10:34 Dose: 75 mg Documented by: Fluticasone Propionate (Fluticasone Propionate Na Spr 16 Gm Btl) 2 sprays NA DAILY ORIN Stop: 10/06/21 08:59 Last Admin: 09/10/21 07:47 Dose: Not Given Documented by: Fluticasone/Vilanterol (Fluticasone/Vilanterol 100/25mcg 14 Puffs/Inhaler) 1 puffs INH DAILY ORIN Stop: 10/06/21 08:59 Last Admin: 09/10/21 07:47 Dose: Not Given Documented by: Heparin Sodium (Porcine) (Heparin Sod 5,000 Unit/0.5 Ml Vial) 5,000 units SQ Q8H ORIN Stop: 10/06/21 00:00 Last Admin: 09/10/21 15:49 Dose: Not Given Documented by: Promethazine HCl 6.25 mg/ (Sodium Chloride) 50.25 mls @ 201 mls/hr IV Q6H PRN PRN Reason: Nausea And Vomiting Stop: 10/05/21 22:46 Levothyroxine Sodium (Levothyroxine Sodium 75 Mcg Tablet) 75 mcg PO DAILYBB ORIN Stop: 10/06/21 06:29 Last Admin: 09/10/21 05:46 Dose: Not Given Documented by: Lisinopril (Lisinopril 5 Mg Tab) 5 mg PO DAILY ORIN Stop: 10/06/21 08:59 Last Admin: 09/10/21 10:33 Dose: 5 mg Documented by: Propranolol HCl (Propranolol Hcl 60 Mg La Cap) 60 mg PO DAILY ORIN Stop: 10/06/21 08:59 Last Admin: 09/10/21 10:33 Dose: 60 mg Documented by: Risperidone (Risperidone 0.5 Mg Tablet) 0.25 mg PO HS ORIN Stop: 10/05/21 22:46 Last Admin: 09/09/21 20:49 Dose: 0.25 mg Documented by: Roflumilast (Roflumilast 500 Mcg Tab) 500 mcg PO DAILY ORIN Stop: 10/06/21 08:59 Last Admin: 09/10/21 10:34 Dose: 500 mcg Documented by: Travoprost (Travoprost Z 0.004% Oph Soln 2.5 Ml Btl) 1 drops OPB HS ORIN Stop: 10/05/21 22:46 Last Admin: 09/09/21 20:48 Dose: 1 drops Documented by:
[2021-09-10] MEDS: risperiDONE 0.5 MG TABLET PO SCH (20:44)
[2021-09-10] MEDS: TRAVOPROST Z 0.004% OPH SOLN 2.5 ML BTL OPB SCH (20:48)
[2021-09-11] MEDS: LEVOTHYROXINE SODIUM 75 MCG TABLET PO SCH (05:59)
[2021-09-11 06:21] LABS: Hematocrit (blood only) 32.5 % (37-47); Hemoglobin 10.9 g/dL (12.0-16.0); Mean Corpuscular Hemoglobin 27.6 pg (25-34); Mean Corpuscular Hgb Conc 33.5 g/dL (32-36); Mean Corpuscular Volume 82.3 fL (80-100); Mean Platelet Volume 7.9 fL (7.4-10.4); Platelet Count 191 K/uL (130-400); RDW Coefficient of Variation 14.7 % (11.5-14.5); RDW Standard Deviation 44.2 fL (36.4-46.3); Red Blood Count 3.95 M/uL (4.2-5.4); White Blood Count 6.69 K/uL (4.8-10.8)
[2021-09-11] MEDS: AMOXICILLIN SUSP 500 MG/10 ML UDP PO SCH ×4 (06:52→22:21)
[2021-09-11 06:53] LABS: BUN Creatinine Ratio 14.3 (10-20); Calcium 8.5 mg/dl (8.5-10.1); Creatinine Clr Calc Pharmacy 39.1 ml/min; Est GFR (African American) 84.5 ml/min; Est GFR (Non-African American) 72.9 ml/min; Magnesium 1.8 mg/dl (1.8-2.4); Phosphorus 2.7 mg/dl (2.5-4.9); Potassium 3.6 mmol/L (3.5-5.1)
[2021-09-11] MEDS: HEPARIN SOD 5,000 UNIT/0.5 ML VIAL SQ SCH ×3 (09:18→23:24)
[2021-09-11] MEDS: lisinopril 5 MG TAB PO SCH (12:06)
[2021-09-11] MEDS: ROFLUMILAST 500 MCG TAB PO SCH (12:06)
[2021-09-11] MEDS: FLUTICASONE PROPIONATE NA SPR 16 GM BTL SCH (12:06)
[2021-09-11] MEDS: FLUTICASONE/VILANTEROL 100/25MCG 14 PUFFS/INHALER INH SCH (12:06)
[2021-09-11] MEDS: PROPRANOLOL HCL 60 MG LA CAP PO SCH (12:06)
[2021-09-11] MEDS: CLOPIDOGREL BISULFATE 75 MG TAB PO SCH (12:06)
[2021-09-11] MEDS ORDERED: POTASSIUM CHLORIDE CRTAB 20 MEQ TABCR PO STA (16:38)
--- NOTE | 2021-09-11 16:39 | Hospitalist Progress Note ---
Date of Service September 11, 2021 Assessment & Plan (1) Rhabdomyolysis: Plan: Improved CK and renal function after fluid resuscitation. Stopped IVF now. Resolved (2) Acute metabolic encephalopathy: Plan: Underlying dementia but appears more confused than her described baseline at home per notes. Likely related to underlying infection, hospitalization and possibly electrolyte issue. Cont plans to correct these issues and reorient as needed. vit. B12 level - wnl vit. B1 level pending (3) Hyperchloremic metabolic acidosis: Plan: Likely from recent continuous infusion of NSS in setting of rhabdomyolisis, and also poss. starvation ketosis (given poor oral intake). Stopped IV NS and started bicarb drip. Bicarb drip now stopped. Consulted Nephrology for recommendations. Resolved. (4) UTI (urinary tract infection): Plan: Alpha strep grew in culture. Delgadillo still in place. Repeated UA given recent history of at least two rounds of antibiotics to treat UTI as outpatient prior to admission, and confusion which may be explained by persistent underlying infection. Started Amoxicillin course now and would complete the course pending any new bacterial growth in new culture. (5) Elevated troponin: Plan: - likely secondary to above (rhabdo) - troponin peaked at 0.3 and trended down - No reported chest pain - Echo could be considered, however, she currently would not be compliant with that study. (6) Dementia: Plan: h/o dementia with caregivers at home, now with insults from UTI and rhabdo as well as hospitalization. High risk for delirium which is likely going on intermittently. Not currently combative. Cont reorienting and treat underlying issues. (7) Hypoglycemia: Plan: Poor PO intake. Nutrition consult ordered to monitor caloric intake. Diet was liberalized. (8) Hypothyroidism: Plan: Cont Synthroid per home regimen. (9) PAD (peripheral artery disease): Plan: chronic, per records. Cont medical management with plavix, lisinopril, BB - statin on hold in setting of rhabdo. Resume on DC (10) CKD (chronic kidney disease), stage III: Plan: at her baseline. Poor PO intake contributing to overall poor urine output. Delgadillo to track accurate I/Os. (11) Pulmonary nodule/lesion, solitary: Plan: followup as outpatient. (12) Pulmonary fibrosis: Plan: Oxygenating well on room air and no current respiratory symptoms. (13) DVT prophylaxis: Plan: Heparin Full code Dispo-cont telemetry. Plan for [facility] at discharge, likely after the weekend. Admission and Anticipated Discharge Date Admission Date: September 05, 2021 Subjective 80 yo F with h/o dementia brought in by family after being found on the floor and confused. Currently being treated for UTI and rhabdo. Currently she is lying in bed, in no acute distress She does not answer all questions appropriately She cannot answer any orientation questions appropriately. She is more cooperative,allows physical exam without any complaints Denies any chest pain, shortness of breath, headache, abdominal pain Review of Systems Review of Systems: All systems reviewed & are unremarkable except as noted in Subjective Physical Exam Physical Exam: GENERAL: Elderly thin female, awake, in no acute distress HEENT: NC/AT. EOMI, PERRL. NECK : Supple, no tenderness CHEST : CTAB HEART : RRR, no obvious murmurs ABDOMEN: no distention, nontender, + bowel sounds EXTREMITIES : no LE swelling, moves extremities NEUROLOGIC : Awake and alert however not answering all questions appropriately (hx of dementia). No facial asymmetry, speech fluent. Moves extremities. SKIN: warm, dry Results & Data Results & Data ([facility]) Vital Signs (Past 12 Hours) Vital Signs Temp Pulse Pulse Resp BP Pulse Ox 09/11/21 15:58 36.8 C 72 18 107/59 L 91 09/11/21 11:57 36.5 C 73 19 139/105 H 99 09/11/21 08:08 36.5 C 53 L 18 121/53 L 98 09/11/21 06:17 52 L Laboratory Results 09/11/21 09/11/21 Range/Units 06:07 06:07 WBC 6.69 (4.8-10.8) K/uL RBC 3.95 L (4.2-5.4) M/uL Hgb 10.9 L (12.0-16.0) g/dL Hct 32.5 L (37-47) % MCV 82.3 (80-100) fL MCH 27.6 (25-34) pg MCHC 33.5 (32-36) g/dL RDW Std Deviation 44.2 (36.4-46.3) fL RDW Coeff of Sindhu 14.7 H (11.5-14.5) % Plt Count 191 (130-400) K/uL MPV 7.9 (7.4-10.4) fL Sodium 142 (136-145) mmol/L Potassium 3.6 (3.5-5.1) mmol/L Chloride 109 H (98-107) mmol/L Carbon Dioxide 24 (21-32) mmol/L Anion Gap 9.0 (3-11) BUN 11 (7-18) mg/dl Creatinine 0.77 (0.6-1.2) mg/dl Est Cr Clr Drug Dosing 39.1 ml/min Est GFR ( Amer) 84.5 ml/min Est GFR (Non-Af Amer) 72.9 ml/min BUN/Creatinine Ratio 14.3 (10-20) Glucose 105 H (70-99) mg/dl Calcium 8.5 (8.5-10.1) mg/dl Phosphorus 2.7 (2.5-4.9) mg/dl Magnesium 1.8 (1.8-2.4) mg/dl Medications Administered Current Inpatient Medications Acetaminophen (Acetaminophen 325 Mg Tab) 650 mg PO Q4H PRN PRN Reason: Pain or Fever Stop: 10/05/21 22:46 Albuterol (Albut/Ipratrop 3mg/0.5mg Neb 3 Ml Vial) 3 ml INH QID PRN PRN Reason: Shortness Of Breath Stop: 10/05/21 22:46 Amoxicillin (Amoxicillin Susp 500 Mg/10 Ml Udp) 500 mg PO Q8H ORIN Stop: 09/13/21 14:59 Last Admin: 09/11/21 16:22 Dose: 500 mg Documented by: Clopidogrel Bisulfate (Clopidogrel Bisulfate 75 Mg Tab) 75 mg PO DAILY ORIN Stop: 10/06/21 08:59 Last Admin: 09/11/21 12:06 Dose: Not Given Documented by: Fluticasone Propionate (Fluticasone Propionate Na Spr 16 Gm Btl) 2 sprays NA DAILY ORIN Stop: 10/06/21 08:59 Last Admin: 09/11/21 12:06 Dose: Not Given Documented by: Fluticasone/Vilanterol (Fluticasone/Vilanterol 100/25mcg 14 Puffs/Inhaler) 1 puffs INH DAILY ORIN Stop: 10/06/21 08:59 Last Admin: 09/11/21 12:06 Dose: Not Given Documented by: Heparin Sodium (Porcine) (Heparin Sod 5,000 Unit/0.5 Ml Vial) 5,000 units SQ Q8H ORIN Stop: 10/06/21 00:00 Last Admin: 09/11/21 16:22 Dose: Not Given Documented by: Promethazine HCl 6.25 mg/ (Sodium Chloride) 50.25 mls @ 201 mls/hr IV Q6H PRN PRN Reason: Nausea And Vomiting Stop: 10/05/21 22:46 Levothyroxine Sodium (Levothyroxine Sodium 75 Mcg Tablet) 75 mcg PO DAILYBB ORIN Stop: 10/06/21 06:29 Last Admin: 09/11/21 05:59 Dose: 75 mcg Documented by: Lisinopril (Lisinopril 5 Mg Tab) 5 mg PO DAILY ORIN Stop: 10/06/21 08:59 Last Admin: 09/11/21 12:06 Dose: Not Given Documented by: Propranolol HCl (Propranolol Hcl 60 Mg La Cap) 60 mg PO DAILY ORIN Stop: 10/06/21 08:59 Last Admin: 09/11/21 12:06 Dose: Not Given Documented by: Risperidone (Risperidone 0.5 Mg Tablet) 0.25 mg PO HS ORIN Stop: 10/05/21 22:46 Last Admin: 09/10/21 20:44 Dose: 0.25 mg Documented by: Roflumilast (Roflumilast 500 Mcg Tab) 500 mcg PO DAILY ORIN Stop: 10/06/21 08:59 Last Admin: 09/11/21 12:06 Dose: Not Given Documented by: Travoprost (Travoprost Z 0.004% Oph Soln 2.5 Ml Btl) 1 drops OPB HS ORIN Stop: 10/05/21 22:46 Last Admin: 09/10/21 20:48 Dose: 1 drops Documented by:
[2021-09-11] MEDS: risperiDONE 0.5 MG TABLET PO SCH (22:12)
[2021-09-11] MEDS: TRAVOPROST Z 0.004% OPH SOLN 2.5 ML BTL OPB SCH (22:13)
[2021-09-12] MEDS: LEVOTHYROXINE SODIUM 75 MCG TABLET PO SCH (06:12)
[2021-09-12] MEDS: AMOXICILLIN SUSP 500 MG/10 ML UDP PO SCH ×3 (06:15→21:30)
[2021-09-12] MEDS: HEPARIN SOD 5,000 UNIT/0.5 ML VIAL SQ SCH ×2 (08:17→15:49)
[2021-09-12] MEDS: FLUTICASONE/VILANTEROL 100/25MCG 14 PUFFS/INHALER INH SCH (08:20)
[2021-09-12] MEDS: FLUTICASONE PROPIONATE NA SPR 16 GM BTL SCH (08:20)
[2021-09-12] MEDS: ROFLUMILAST 500 MCG TAB PO SCH (08:20)
[2021-09-12] MEDS: PROPRANOLOL HCL 60 MG LA CAP PO SCH (08:20)
[2021-09-12] MEDS: CLOPIDOGREL BISULFATE 75 MG TAB PO SCH (08:20)
--- NOTE | 2021-09-12 15:08 | Hospitalist Progress Note ---
Date of Service September 12, 2021 Assessment & Plan (1) Rhabdomyolysis: Plan: Improved CK and renal function after fluid resuscitation. Stopped IVF now. Resolved (2) Acute metabolic encephalopathy: Plan: Underlying dementia but appears more confused than her described baseline at home per notes. Likely related to underlying infection, hospitalization and possibly electrolyte issue. Cont plans to correct these issues and reorient as needed. vit. B12 level - wnl vit. B1 level low, give IV thiamine now, and start p.o. supplement (3) Hyperchloremic metabolic acidosis: Plan: Likely from recent continuous infusion of NSS in setting of rhabdomyolisis, and also poss. starvation ketosis (given poor oral intake). Stopped IV NS and started bicarb drip. Bicarb drip now stopped. Consulted Nephrology for recommendations. Resolved. (4) UTI (urinary tract infection): Plan: Alpha strep grew in culture. Delgadillo still in place. Repeated UA given recent history of at least two rounds of antibiotics to treat UTI as outpatient prior to admission, and confusion which may be explained by persistent underlying infection. Started Amoxicillin course now and would complete the course pending any new bacterial growth in new culture. (5) Elevated troponin: Plan: - likely secondary to above (rhabdo) - troponin peaked at 0.3 and trended down - No reported chest pain - Echo could be considered, however, she currently would not be compliant with that study. (6) Dementia: Plan: h/o dementia with caregivers at home, now with insults from UTI and rhabdo as well as hospitalization. High risk for delirium which is likely going on intermittently. Not currently combative. Cont reorienting and treat underlying issues. (7) Hypoglycemia: Plan: Poor PO intake. Nutrition consult ordered to monitor caloric intake. Diet was liberalized. (8) Hypothyroidism: Plan: Cont Synthroid per home regimen. (9) PAD (peripheral artery disease): Plan: chronic, per records. Cont medical management with plavix, lisinopril, BB - statin on hold in setting of rhabdo. Resume on DC (10) CKD (chronic kidney disease), stage III: Plan: at her baseline. Poor PO intake contributing to overall poor urine output. Delgadillo to track accurate I/Os. (11) Pulmonary nodule/lesion, solitary: Plan: followup as outpatient. (12) Pulmonary fibrosis: Plan: Oxygenating well on room air and no current respiratory symptoms. (13) DVT prophylaxis: Plan: Heparin Full code Dispo-cont telemetry. Plan for [facility] at discharge, likely tomorrow. Admission and Anticipated Discharge Date Admission Date: September 05, 2021 Subjective 80 yo F with h/o dementia brought in by family after being found on the floor and confused. Currently being treated for UTI and rhabdo. Currently she is lying in bed, in no acute distress She does not answer all questions appropriately She cannot answer any orientation questions appropriately. She is more cooperative,allows physical exam without any complaints Overall says she is feeling better, nursing staff also reports she eats 50% of her meals. Had 2 normal stools at bedside, updated, likely discharge tomorrow. Denies any chest pain, shortness of breath, headache, abdominal pain Thiamine level low, probably due to poor oral intake, give IV thiamine now, and start p.o. supplement Review of Systems Review of Systems: All systems reviewed & are unremarkable except as noted in Subjective Physical Exam Physical Exam: GENERAL: Elderly thin female, awake, in no acute distress HEENT: NC/AT. EOMI, PERRL. NECK : Supple, no tenderness CHEST : CTAB HEART : RRR, no obvious murmurs ABDOMEN: no distention, nontender, + bowel sounds EXTREMITIES : no LE swelling, moves extremities NEUROLOGIC : Awake and alert however not answering all questions appropriately (hx of dementia). No facial asymmetry, speech fluent. Moves extremities. SKIN: warm, dry Results & Data Results & Data ([facility]) Vital Signs (Past 12 Hours) Vital Signs Temp Pulse Pulse Resp BP Pulse Ox Pulse Ox 09/12/21 11:58 36.5 C 68 18 159/72 H 92 09/12/21 09:54 56 L 09/12/21 08:24 36.8 C 68 18 133/56 L 92 09/12/21 08:00 95 09/12/21 03:45 36.5 C 56 L 16 129/73 95 Laboratory Results 09/07/21 Range/Units 04:58 Vitamin B1 <6 L (8-30) nmol/L Medications Administered Current Inpatient Medications Acetaminophen (Acetaminophen 325 Mg Tab) 650 mg PO Q4H PRN PRN Reason: Pain or Fever Stop: 10/05/21 22:46 Albuterol (Albut/Ipratrop 3mg/0.5mg Neb 3 Ml Vial) 3 ml INH QID PRN PRN Reason: Shortness Of Breath Stop: 10/05/21 22:46 Amoxicillin (Amoxicillin Susp 500 Mg/10 Ml Udp) 500 mg PO Q8H ORIN Stop: 09/13/21 14:59 Last Admin: 09/12/21 06:15 Dose: 500 mg Documented by: Clopidogrel Bisulfate (Clopidogrel Bisulfate 75 Mg Tab) 75 mg PO DAILY ORIN Stop: 10/06/21 08:59 Last Admin: 09/12/21 08:20 Dose: 75 mg Documented by: Fluticasone Propionate (Fluticasone Propionate Na Spr 16 Gm Btl) 2 sprays NA DAILY ORIN Stop: 10/06/21 08:59 Last Admin: 09/12/21 08:20 Dose: 2 sprays Documented by: Fluticasone/Vilanterol (Fluticasone/Vilanterol 100/25mcg 14 Puffs/Inhaler) 1 puffs INH DAILY ORIN Stop: 10/06/21 08:59 Last Admin: 09/12/21 08:20 Dose: 1 puffs Documented by: Heparin Sodium (Porcine) (Heparin Sod 5,000 Unit/0.5 Ml Vial) 5,000 units SQ Q8H ORIN Stop: 10/06/21 00:00 Last Admin: 09/12/21 08:17 Dose: 5,000 units Documented by: Promethazine HCl 6.25 mg/ (Sodium Chloride) 50.25 mls @ 201 mls/hr IV Q6H PRN PRN Reason: Nausea And Vomiting Stop: 10/05/21 22:46 Thiamine HCl 200 mg/ Sodium (Chloride) 52 mls @ 208 mls/hr IV NOW STA Stop: 09/12/21 15:09 Levothyroxine Sodium (Levothyroxine Sodium 75 Mcg Tablet) 75 mcg PO DAILYBB ORIN Stop: 10/06/21 06:29 Last Admin: 09/12/21 06:12 Dose: 75 mcg Documented by: Lisinopril (Lisinopril 5 Mg Tab) 5 mg PO DAILY ORIN Stop: 10/06/21 08:59 Last Admin: 09/11/21 12:06 Dose: Not Given Documented by: Propranolol HCl (Propranolol Hcl 60 Mg La Cap) 60 mg PO DAILY ORIN Stop: 10/06/21 08:59 Last Admin: 09/12/21 08:20 Dose: 60 mg Documented by: Risperidone (Risperidone 0.5 Mg Tablet) 0.25 mg PO HS ORIN Stop: 10/05/21 22:46 Last Admin: 09/11/21 22:12 Dose: 0.25 mg Documented by: Roflumilast (Roflumilast 500 Mcg Tab) 500 mcg PO DAILY ORIN Stop: 10/06/21 08:59 Last Admin: 09/12/21 08:20 Dose: 500 mcg Documented by: Travoprost (Travoprost Z 0.004% Oph Soln 2.5 Ml Btl) 1 drops OPB HS ORIN Stop: 10/05/21 22:46 Last Admin: 09/11/21 22:13 Dose: 1 drops Documented by:
[2021-09-12] MEDS ORDERED: THIAMINE HCL 200 MG in SODIUM CHLORIDE 0.9% 50 ML IV STA (15:14)
[2021-09-12 15:46] LABS: BUN Creatinine Ratio 16.3 (10-20); Calcium 8.5 mg/dl (8.5-10.1); Creatinine Clr Calc Pharmacy 30.3 ml/min; Est GFR (African American) 61.6 ml/min; Est GFR (Non-African American) 53.2 ml/min; Magnesium 1.8 mg/dl (1.8-2.4); Phosphorus 2.7 mg/dl (2.5-4.9); Potassium 3.7 mmol/L (3.5-5.1)
[2021-09-12] MEDS: risperiDONE 0.5 MG TABLET PO SCH (21:30)
[2021-09-12] MEDS: TRAVOPROST Z 0.004% OPH SOLN 2.5 ML BTL OPB SCH (21:30)
[2021-09-13] MEDS: HEPARIN SOD 5,000 UNIT/0.5 ML VIAL SQ SCH ×2 (00:25→08:53)
[2021-09-13] MEDS: LEVOTHYROXINE SODIUM 75 MCG TABLET PO SCH (06:27)
[2021-09-13] MEDS: AMOXICILLIN SUSP 500 MG/10 ML UDP PO SCH (06:28)
[2021-09-13 08:46] LABS: BUN Creatinine Ratio 20.8 (10-20); Calcium 8.3 mg/dl (8.5-10.1); Creatinine Clr Calc Pharmacy 36.7 ml/min; Est GFR (African American) 73.9 ml/min; Est GFR (Non-African American) 63.8 ml/min; Phosphorus 2.9 mg/dl (2.5-4.9); Potassium 3.6 mmol/L (3.5-5.1)
[2021-09-13] MEDS: FLUTICASONE/VILANTEROL 100/25MCG 14 PUFFS/INHALER INH SCH (08:52)
[2021-09-13] MEDS: FLUTICASONE PROPIONATE NA SPR 16 GM BTL SCH (08:52)
[2021-09-13] MEDS: ROFLUMILAST 500 MCG TAB PO SCH (08:53)
[2021-09-13] MEDS: CLOPIDOGREL BISULFATE 75 MG TAB PO SCH (08:53)
[2021-09-13] MEDS: PROPRANOLOL HCL 60 MG LA CAP PO SCH (08:53)
[2021-09-13] MEDS ORDERED: THIAMINE HCL 100 MG TAB PO SCH (09:00)
--- NOTE | 2021-09-13 11:17 | Discharge Summary ---
Date of Service September 13, 2021 Admission HPI Per Admitting Provider History obtained from patient, caregiver , and records. Limited history from patient secondary to dementia. Medical history significant for hypertension, PAD status post surgery, COPD, past tobacco abuse, SCCA LUE sp surgery ongoing radiation tx, dementia Last confinement 2018 for right shoulder injury. Patient found on the floor physiotherapy aide by yesterday. Patient possibly fell off the couch when she fell asleep. Patient unable to get patient up from the floor right away. had to get help hours later from caregivers who are not at patient's home 24 hours. Patient weak and little sleepy. Patient denies chest pain, S OB, abdominal pain. Patient brought to the ER for evaluation. She does not know why she is in the hospital. 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, lives with Admission Exam Per Admitting Provider GENERAL: Comfortable, demented, lethargic, no respiratory distress SKIN: Pallor, warm HEENT: Pale palpebral conjunctivae, no ptosis, dry buccal mucosa NECK : Supple, no tenderness CHEST : Decreased breath sounds, no tenderness HEART : RRR, no obvious murmurs ABDOMEN: no distention, nontender EXTREMITIES : Minimal LE swelling, no LE tenderness, no other conspicuous deformities noted NEUROLOGIC : Lethargic, demented, no facial asymmetry, no other gross focality Principal Diagnosis Rhabdomyolysis Acute metabolic encephalopathy Dementia Hyperchloremic metabolic acidosis-resolved UTI Elevated troponin Discharge Exam CONSTITUTIONAL: frail, cachectic-appearing, vitals as above, NAD EYES: normal conjunctivae, no scleral icterus ENT: external ear and nose normal, poor dentition with missing teeth. NECK: trachea midline RESPIRATORY: clear to auscultation bilaterally, no crackles, rales or wheezes, normal respiratory effort. CARDIOVASCULAR: regular rate and rhythm, S1 and 2 heard without murmurs, gallops or rubs, no JVD, no peripheral edema GASTROINTESTINAL: soft, nontender, ND, no guarding MUSCULOSKELETAL: could not assess her strength although she is folded up in bed with her legs under her and active movement is not much when asked to straighten her legs. Generalized weakness suspected. Head NC/AT. SKIN: warm and dry, very dry and flaky in spots. Has growths on her arm that appear tuberous, chronic in nature NEUROLOGIC: No facial palsy, no dysarthria. CN 2-12 grossly intact, normal cognition, normal speech, no tremor. Could not assess sensation and exam limited by dementia and ongoing confusion. PSYCHIATRIC: alert , cooperative with exam. Disoriented in that she cannot answer orientation questions appropriately. Discharge Data Allergies Allergy/AdvReac Type Severity Reaction Status Date / Time nitrofurantoin Allergy Unknown ON [facility] MED Verified 09/05/21 19:41 LIST Sulfa (Sulfonamide AdvReac Intermediate STOMACH Verified 09/05/21 19:41 Antibiotics) UPSET Consultations 09/05/21 19:07 ED Decision to Admit Stat 09/08/21 13:02 Consult Nephrology Routine Ordered Studies 09/05/21 18:26 CT head/brain wo con Stat Hospital Course (1) Rhabdomyolysis: (2) Acute metabolic encephalopathy: (3) Hyperchloremic metabolic acidosis: (4) UTI (urinary tract infection): (5) Elevated troponin: (6) Dementia: (7) Hypoglycemia: (8) Hypothyroidism: (9) PAD (peripheral artery disease): (10) CKD (chronic kidney disease), stage III: (11) Pulmonary nodule/lesion, solitary: (12) Pulmonary fibrosis: 80-year-old female presents to the ER with generalized weakness after a fall off of her couch. She has a history of dementia. On arrival she was nontoxic in appearance with no obvious trauma. Chest x-ray revealed cardiomegaly with nonspecific interstitial coarsening, small pleural effusions with bibasilar consolidative opacities suggestive of atelectasis versus pneumonitis and evidence of emphysema. Head CT without contrast was performed revealing no acute intracranial abnormality or calvarial fracture but with severe paranasal sinus disease new from the 2017 comparison. An EKG revealed normal sinus rhythm at a rate of 62 with T wave inversions laterally. There was no evidence of ST elevation. Her vital signs were normal. CK was elevated at 1065. She was admitted to the hospitalist service for treatment of nontraumatic rhabdomyolysis and placed on IV fluids. Atorvastatin was held. Notably troponin was slightly elevated at 0.307 and is trended down to 0.117. Troponin elevation was consistent with nonischemic myocardial injury. An echocardiogram was considered, however, at the time she was delirious and was unable to tolerate the study. AST was 40 on admission and normalized prior to discharge. ALT was within normal limits. Mirtazapine was held for uncertain reason and on discharge this was continually held as patient had not received it in over a week. Further consideration for restarting this as outpatient by outpatient physician on follow-up. She developed a hyperchloremic metabolic acidosis with a bicarb of 11 at 1 point during her hospital stay. Nephrology was consulted and fluids will transition from normal saline to bicarb with resolution of acidosis. Anion gap metabolic acidosis was thought secondary to starvation ketosis and also resolved with bicarbonate fluids. It is expected that these issues may recur off bicarbonate fluid and with decreased oral intake with dementia which is irreversible. Nephrology documented speaking with her son regarding stages of dementia and how this may impact blood chemistries. (Hypoglycemia was noted at one point due to poor po intake). She did complete a course of amoxicillin during her hospital stay for presumed urinary tract infection although cultures revealed alpha Streptococcus followed by lactobacillus. At time of discharge she was apparently mentating at baseline but was disoriented to place and time. She was cooperative with exam and was breathing easily, oxygenating 95% on room air. She was hemodynamically stable and afebrile and tolerating p.o. Delgadillo catheter had been removed and she was spontaneously voiding per nurse. She was discharged in stable condition with close primary care follow-up recommended. I did contact family at time of discharge given the patient's mental state and reviewed the care plan at time of this transition. They verbalized understanding with intent to comply. Total Time Total Time Spent Total Time Spent (In Minutes): 60 Discharge Plan Discharge Items Patient Disposition: Transfer Group Home Fac Reason For Visit: RHABDOMYOLYSIS, TROP ELEV Discharge Diagnosis: Rhabdomyolysis Acute metabolic encephalopathy Dementia Hyperchloremic metabolic acidosis-resolved UTI Elevated troponin Condition on Discharge: Good Activity: Resume your previous activity Non-emergency contact: Primary Care Provider Call non-emergency contact if: you have any medication questions, your symptoms worsen, your pain is not controlled, your pain is worsening, your pain is unusual for you and your pain is concerning for you Follow-up/Referrals: Christiano Ramírez DO [Primary Care Provider] - Diet: Regular Diet Texture: Pureed (blended smooth) Addtl Attending Provider Instructions: Please take all medications as instructed on discharge as below. It is recommended that you follow-up with your primary care doctor within 1 week of discharge from the hospital. This week to ensure that you are still doing well after leaving the hospital, consider resuming your mirtazapine, and discuss any new strategies as needed for dementia care with your family. It is strongly recommended that a family member is with you during this visit. It was a pleasure taking care of you! Please call if you have any questions or problems. You can reach a [facility] hospitalist on duty at [facility] 24 hours a day by calling [phone]. Take care of yourself. Jasmyne Gates, DO [facility] Center[facility] Pending Studies at Discharge: No Stand-Alone Forms: My [facility] Skilled Items Patient informed of condition?: Yes DNR: No Discharge Level of Care: Skilled Communicable Disease: No Discharge Prognosis: Stable Lines: None Urinary Catheter: No Medications and DC Order Prescriptions: Continued roflumilast 500 mcg tablet 500 mcg PO DAILY Qty: 30 RF: 5 Symbicort 80-4.5 mcg/actuation HFA aerosol inhaler 2 puff INH BID Qty: 10.2 RF: 5 travoprost 0.004 % drops 1 drp OPB HS RF: 0 albuterol sulfate [Ventolin HFA] 90 mcg/actuation HFA aerosol inhaler 2 puff INHALATION Q4H PRN (Reason: Shortness Of Breath Or Wheezing) Qty: 8 RF: 0 atorvastatin 10 mg Tablet 10 mg PO HS RF: 0 clopidogrel 75 mg Tablet 75 mg PO DAILY RF: 0 levothyroxine 75 mcg Tablet 75 mcg PO DAILYBB RF: 0 lisinopril 5 mg Tablet 5 mg PO DAILY RF: 0 ondansetron HCl [Zofran] 4 mg Tablet 4 mg PO Q8H PRN (Reason: NAUSEA/VOMITING) RF: 0 propranolol 60 mg capsule,extended release 24 hr 60 mg PO DAILY RF: 0 risperidone 0.25 mg tablet 0.25 mg PO HS RF: 0 fluticasone propionate 50 mcg/actuation spray,suspension 2 spray INTRANASAL DAILY RF: 0 ipratropium-albuterol 0.5 mg-3 mg(2.5 mg base)/3 mL solution for nebulization 3 ml inhalation QID PRN (Reason: Shortness Of Breath) RF: 0 Discontinued mirtazapine 30 mg tablet 30 mg PO HS RF: 0 Discharge Orders: Discharge Order (Routine); Ordered 09/13/21 Ordered By: Jasmyne Gates Admission Data Admit Date/Time: 09/05/21 20:13 Attending Provider: Jasmyne Gates Admit Provider: Klaus De La Rosa Primary Care Provider: Christiano Ramírez Other Providers: Klaus De La Rosa ; [place] ; Ann Torres ; Jasmyne Gates
[2021-09-13 11:29] VITALS: BP 122/62; PULSE 62; TEMP 97.7; O2SAT 96
== END 2021-09-13 13:31 | DRG 557 ==
LOC: ED 14:34 → SUATTDRO 20:13 → EDINP 20:13 → 2W 09-07 19:53